=== PATIENT | female | born 1955 | race Caucasian/White ===

== ENCOUNTER 2017-07-27 08:33 | Emergency (ER) | payer BC ==
[2017-07-27 08:47] VITALS: BP 140/87
[2017-07-27] MEDS ORDERED: Fluorescein Sodium TOPICAL* 1 MG TEST OPHTHALMIC ONE (08:56)
[2017-07-27] MEDS ORDERED: Tetracaine 0.5% OPTH.SOL 4 ML* 1 DROP BTL LEFT EYE ONE (08:57)
[2017-07-27] MEDS ORDERED: Eye Irrigation Solution 30 ML BOTTLE LEFT EYE ONE (08:57)
--- NOTE | 2017-07-27 09:31 | UC ---
Skin Complaint HPI - HPI Summary HPI Summary: Edilma FOUR DAYS HAS HAD ITCHY LESIONS ON RIGHT ELBOW, LEFT INDEX FINGER AND RIGHT THUMB. TODAY FELT IRRITATION IN LEFT EYE. SISTER VISITED A FEW WEEKS AGO AND HAD SHINGLES. CONCERN THAT SHE HAS SHINGLES. NO FEVER. LESION ON RIGHT ELBOW IS RESOLVING. NO DISCHARGE. NO CHANGES IN VISION. NO RASHES ON FACE. - History of Current Complaint Chief Complaint: UCEye Time Seen by Provider: 07/27/17 08:50 Stated Complaint: EYE ISSUE SKIN ISSUE Hx Obtained From: Patient Onset/Duration: Gradual Onset, Lasting Days, Still Present Skin Exposure Onset/Duration: Days Ago Onset Severity: Mild Current Severity: Mild Location: Diffuse Character: Pruritus, Raised - <1mm VESICLE ON LEFT INDEX FINGER AND RIGHT THUMB Aggravating: Nothing Alleviating: Nothing Associated Signs & Symptoms: Positive: Rash. Negative: Nausea, Vomiting, Numbness, Difficulty Breathing, Fever, Chills, Cough, Wheezing, Chest Pain, Hoarseness, Throat Tightening, Drainage, Tenderness, Red Streaks, Joint Swelling Related History: Possible Reaction to: Insect, Possible Reaction to: Environmental Exposure - Allergy/Home Medications Allergies/Adverse Reactions: Allergies Allergy/AdvReac Type Severity Reaction Status Date / Time Milk Protein Extract AdvReac See Comment Verified 07/27/17 08:47 [From Spiriva] Tiotropium [From Spiriva] AdvReac See Comment Verified 07/27/17 08:47 Review of Systems Constitutional: Negative Skin: Rash Eyes: Eye Redness - MILD LEFT LATERAL SCLERA ENT: Negative Respiratory: Negative Cardiovascular: Negative Gastrointestinal: Negative Genitourinary: Negative Motor: Negative Neurovascular: Negative Musculoskeletal: Negative Neurological: Negative Psychological: Anxious All Other Systems Reviewed And Are Negative: Yes PMH/Surg Hx/FS Hx/Imm Hx Previously Healthy: Yes - Surgical History Surgical History: Yes Surgery Procedure, Year, and Place: LT SHOULDER SURGURY 2003basal cell ca removalTONSILS A KID - Family History Known Family History: Positive: Unknown, Other - SISTER HAD SHINGLES Family History: noncontributory - Social History Occupation: Employed Full-time Lives: With Family Alcohol Use: Occasionally Substance Use Type: None Smoking Status (MU): Never Smoked Tobacco Physical Exam Triage Information Reviewed: Yes Appearance: Well-Appearing, No Pain Distress, Well-Nourished Vital Signs: Initial Vital Signs Temp 97.6 F 07/27/17 08:42 Pulse 68 07/27/17 08:42 Resp 18 07/27/17 08:42 BP 140/87 07/27/17 08:42 Pulse Ox 99 07/27/17 08:42 Vital Signs Reviewed: Yes Eyes: Positive: Conjunctiva Inflamed - MILD INFLAMMATION OF LEFT LATERAL SCLERA , Other: - NO FLUORESCEIN UPTAKE IN CORNEA OR SCLERA ENT Exam: Normal ENT: Positive: Normal ENT inspection, Hearing grossly normal, TMs normal Dental Exam: Normal Neck exam: Normal Neck: Positive: Supple, Nontender, No Lymphadenopathy Respiratory Exam: Normal Respiratory: Positive: Chest non-tender, Lungs clear, Normal breath sounds, No respiratory distress, No accessory muscle use Cardiovascular Exam: Normal Cardiovascular: Positive: RRR, No Murmur, Pulses Normal Abdominal Exam: Normal Musculoskeletal Exam: Normal Musculoskeletal: Positive: Strength Intact, ROM Intact Neurological Exam: Normal Psychological Exam: Normal Skin: Positive: rashes - ERYTHEMATOUS MACULAR 0.5CM X 0.5CM RIGHT ELBOW; <1mm NONTENDER VESICLE LEFT INDEX FINGER, <1mm NONTENDER VESICLE RIGH THUMB; Course/Dx - Differential Diagnoses - Skin Complaint Differential Diagnoses: Allergic Reaction, Cellulitis, Contact Dermatitis, Drug Rash, Scabies, Varicella Zoster - Diagnoses Provider Diagnoses: CONTACT DERMATITIS; LEFT CONJUNCTIVITIS Discharge - Discharge Plan Condition: Stable Disposition: HOME Prescriptions: Tobramycin 0.3% OPHTH.ISABELLA* 1 drop LEFT EYE Q4H #1 btl Triamcinolone 0.1% OINT(NF) [Kenalog 0.1% OINT(NF)] 1 applic .SEE ORDER TID #1 tube Patient Education Materials: Contact Dermatitis (ED), Conjunctivitis (ED) Referrals: Sierra Jimenez MD [Primary Care Provider] -
== END 2017-07-27 09:25 | disposition home or self-care (01) ==
LOC: UCEAST 08:33
DX: L25.9 Unspecified contact dermatitis, unspecified cause (principal); H10.32 Unspecified acute conjunctivitis, left eye
CPT/HCPCS: 99212; A9270-GY; G0463

== ENCOUNTER 2018-07-15 15:51 | Emergency (ER) | payer BC, OTHER ==
--- OUTSIDE RECORDS SUMMARY | 2018-07-15 15:57 | XMS REPORT ---
:1955 External Reference #:[id number] Author Organization [facility] Address [address] [place] [address] Phone [phone] Care Team Providers Name Role Phone Sierra Jimenez M.D. Primary Care Physician Unavailable Payers Type Date Identification Numbers Payment Provider Subscriber Commercial Effective: Policy Number: [id number] [facility] [place] 2015 Healthcare Group Number: [id number] [address] Group Name: [place] [address] PayID: [id number] Problems Date Description Provider Status Onset: 06/26/2017 Uncomplicated moderate persistent Ivon Saavedra M.D. Active asthma Onset: 12/26/2015 Uncomplicated moderate persistent Franchesca BrianLAN duranP-C Active asthma Onset: 12/26/2015 Allergic rhinitis due to animals KRYSTAL Beaver-C Active Onset: 10/07/2013 Acute maxillary sinusitis Janine Guy M.D. Active Onset: 10/07/2013 Allergic rhinitis due to pollen Janine Guy M.D. Active Onset: 10/07/2013 Allergic rhinitis Janine Guy M.D. Active Onset: 10/07/2013 Extrinsic asthma without status Janine Guy M.D. Active asthmaticus Family History Date Family Member(s) Problem(s) Comments General Seasonal Allergies General Asthma General strep throat daughter General Food Allergy father: strawberries, shellfish sisters: shellfish General Migraine General Thyroid Disease General Colon Cancer General AMANDA daughter General Cervical Cancer Father Seasonal Allergies Father Food Allergy Father Colon Cancer Mother Migraine Mother Thyroid Disease Mother Cervical Cancer First Sister Asthma First Sister Migraine First Sister Food Allergy Social History Type Date Description Comments Marital Status Legal Status: Lives With Spouse Home Environment Uses air motor power connector Home Environment Does not have an air conditioner Home Environment Unfinished Basement Home Environment The basement is damp Home Environment Does not use a dehumidifier Home Environment There are draperies in the home Home Environment The home is pa Home Environment The floors are wood Home Environment Uses forced air heating Home Environment Uses oil heating Home Environment [place] Home Environment Water Source: Well Smoke-Free Home is smoke-free Smoke-Free Work is smoke-free Pets 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 ETOH Use Occasionally consumes alcohol Smoking Patient has never smoked Recreational Drug Use Never Used Drugs Allergies, Adverse Reactions, Alerts Date Description Reaction Status Severity Comments 06/18/2014 Spiriva urinary retention active 02/21/2015 Latex active itching Medications Medication Date Status Form Strength Qnty SIG Indications Ordering Provider Ventolin HFA 06/26 Active Aerosol 108(90Bas 18uni 2 puffs Izabel /2016 e) ts inhalation Uldrich, mcg/Act every 4 DIETARY DIRECTOR-C hours prn Optichamber 06/06 Active Device 1unit use with Sharon Ramsay /2015 s all Chau, inhalers DIETARY DIRECTOR-BC may sustitute easivent spacer Dx: J45.40 asthma Levocetirizine 01/25 Active Tablets 5mg 30tab one tablet Izabel Dihydrochloride s by mouth Uldrich, each DIETARY DIRECTOR-C evening Albuterol Sulfate 12/21 Active Nebulizer (2.5mg/3M 1Box one vial L) 0.083% via neb Pieretti, every 2-4 M.D. hours as needed for wheezing Patanase 10/21 Active Solution 0.6% 30.5u 1 spray per nits nostril 2 x Uldrich, daily apply DIETARY DIRECTOR-C rebate: rxbin: [id number] ceramist: ([id number]) rxpcn: loyalty rxgrp: [id number] id: [id number] Peak Flow Meter 07/20 Active Device 1unit Measure Randi L. /2012 s peak flow Sejal, and use DIETARY DIRECTOR-C rescue inhaler according to directions Nebulizer 09/08 Active Device 1unit use with Greg Hanson/Tubing s xmark Partida M.D. solution Nebulizer 09/08 Active Misc 1unit durable Nadir /2011 s medical Rubinstei equipment n, MKevin purchase Raloxifene HCL Active Tablets 60mg one tablet Unknown /0000 once a day Montelukast Active Tablets 10mg 1 by mouth Unknown Sodium /0000 every day Symbicort Active Aerosol 160-4.5mc 2 puffs Unknown /0000 g/Act inhalation twice a day Medications Administered in Office Medication Date Status Form Strength Qnty SIG Indications Ordering Provider Injection 0725/ Administered Injection Allergy 2018 Injection Injection 07/02/ Administered Injection Allergy 2018 Injection Injection 06/20/ Administered Injection Allergy 2017 Injection Injection 06/06/ Administered Injection Allergy 2017 Injection Injection 05/14/ Administered Injection Ivon Saavedra M.D. Injection 05/14/ Administered Injection Allergy 2018 Injection Injection 04/30/ Administered Injection Allergy 2018 Injection Injection 04/05/ Administered Injection Allergy 2018 Injection Injection 03/15/ Administered Injection Allergy 2018 Injection Injection /28/ Administered Injection Allergy 2018 Injection Injection 02/12/ Administered Injection Allergy 2018 Injection Injection 02// Administered Injection Allergy 2018 Injection Injection 12/16/ Administered Injection Allergy 2018 Injection Injection 01/05/ Administered Injection Allergy 2018 Injection Injection 12/07/ Administered Injection Allergy 2017 Injection Injection 11/09/ Administered Injection Allergy 2017 Injection Injection 10/20/ Administered Injection Allergy 2017 Injection Injection 09/29/ Administered Injection Allergy 2016 Injection Injection 09/14/ Administered Injection Allergy 2017 Injection Injection 08/31/ Administered Injection Allergy 2017 Injection Injection 08/18/ Administered Injection Allergy 2017 Injection Injection 07/31/ Administered Injection Allergy 2017 Injection Injection 07/17/ Administered Injection Allergy 2017 Injection Injection 06/28/ Administered Injection Allergy 2016 Injection Injection 06/19/ Administered Injection Allergy 2016 Injection Injection 05/26/ Administered Injection Allergy 2017 Injection Injection 05/05/ Administered Injection Allergy 2016 Injection Injection 04/19/ Administered Injection Allergy 2016 Injection Injection 04/10/ Administered Injection Allergy 2016 Injection Injection 03/30/ Administered Injection Allergy 2016 Injection Injection 03/16/ Administered Injection Allergy 2016 Injection Injection 03/08/ Administered Injection Allergy 2016 Injection Injection 02/22/ Administered Injection Allergy 2017 Injection Injection 02/01/ Administered Injection Allergy 2017 Injection Injection 01/13/ Administered Injection Allergy 2017 Injection Injection 1228/ Administered Injection Allergy 2016 Injection Injection 12/14/ Administered Injection Allergy 2016 Injection Injection 10/22/ Administered Injection Allergy 2016 Injection Injection 11/11/ Administered Injection Allergy 2016 Injection Injection 10// Administered Injection Allergy 2016 Injection Injection 10/07/ Administered Injection Allergy 2016 Injection Injection 09/19/ Administered Injection Allergy 2016 Injection Injection 09/07/ Administered Injection Allergy 2016 Injection Injection 08/29/ Administered Injection Allergy 2016 Injection Injection 08/10/ Administered Injection Allergy 2016 Injection Injection 08/01/ Administered Injection Allergy 2016 Injection Injection 07/20/ Administered Injection Allergy 2016 Injection Injection 07/06/ Administered Injection Allergy 2016 Injection Injection 06/15/ Administered Injection Allergy 2015 Injection Injection 05/27/ Administered Injection Allergy 2016 Injection Injection 05/13/ Administered Injection Allergy 2016 Injection Injection 04/25/ Administered Injection Allergy 2016 Injection Injection 04/11/ Administered Injection Allergy 2016 Injection Injection 02/19/ Administered Injection Allergy 2016 Injection Injection 03/14/ Administered Injection Allergy 2016 Injection Injection 02/29/ Administered Injection Allergy 2016 Injection Injection 02/15/ Administered Injection Allergy 2016 Injection Injection 01/25/ Administered Injection Allergy 2016 Injection Injection 01/15/ Administered Injection Allergy 2016 Injection Injection 01/04/ Administered Injection Allergy 2016 Injection Injection 12/21/ Administered Injection Allergy 2015 Injection Injection 12/07/ Administered Injection Allergy 2015 Injection Injection 11/16/ Administered Injection Allergy 2015 Injection Injection 11/04/ Administered Injection Allergy 2015 Injection Injection 10/21/ Administered Injection Allergy 2015 Injection Injection 09/30/ Administered Injection Allergy 2015 Injection Injection 09/14/ Administered Injection Allergy 2015 Injection Injection 08/31/ Administered Injection Allergy 2014 Injection Injection 08/07/ Administered Injection Allergy 2015 Injection Injection 07/24/ Administered Injection Allergy 2014 Injection Injection 07/06/ Administered Injection Allergy 2014 Injection Injection 06/22/ Administered Injection Allergy 2014 Injection Injection 06/15/ Administered Injection Allergy 2014 Injection Injection 05/27/ Administered Injection Allergy 2014 Injection Injection 05/08/ Administered Injection Allergy 2014 Injection Injection 04/29/ Administered Injection Allergy 2015 Injection Injection 04/20/ Administered Injection Allergy 2015 Injection Injection 04/06/ Administered Injection Allergy 2015 Injection Injection 03/09/ Administered Injection Allergy 2014 Injection Injection 02/16/ Administered Injection Allergy 2015 Injection Injection 01/28/ Administered Injection Allergy 2015 Injection Injection 01/12/ Administered Injection Allergy 2015 Injection Injection 12/29/ Administered Injection Allergy 2013 Injection Injection 12/12/ Administered Injection Allergy 2013 Injection Injection 11/26/ Administered Injection Allergy 2013 Injection Injection 11/12/ Administered Injection Allergy 2013 Injection Injection 10/24/ Administered Injection Allergy 2013 Injection Injection 10/15/ Administered Injection Allergy 2013 Injection Injection 09/29/ Administered Injection Allergy 2013 Injection Injection 09/22/ Administered Injection Allergy 2013 Injection Injection 09/08/ Administered Injection Allergy 2013 Injection Injection 08/15/ Administered Injection Allergy 2013 Injection Injection 07/25/ Administered Injection Allergy 2013 Injection Injection 07/11/ Administered Injection Allergy 2013 Injection Injection 06/23/ Administered Injection Allergy 2013 Injection Injection 06/16/ Administered Injection Allergy 2013 Injection Injection 06/09/ Administered Injection Allergy 2013 Injection Injection 06/02/ Administered Injection Allergy 2013 Injection Injection 04/25/ Administered Injection Allergy 2013 Injection Injection 03/26/ Administered Injection Allergy 2013 Injection Injection 02/26/ Administered Injection Allergy 2013 Injection Injection 02/10/ Administered Injection Allergy 2013 Injection Injection 01/27/ Administered Injection Allergy 2013 Injection Injection 01/15/ Administered Injection Allergy 2013 Injection Injection 12/30/ Administered Injection Allergy 2012 Injection Injection 12/13/ Administered Injection Allergy 2012 Injection Injection 11/25/ Administered Injection Allergy 2012 Injection Injection 11/06/ Administered Injection Allergy 2012 Injection Injection 10/23/ Administered Injection Allergy 2012 Injection Injection 10/09/ Administered Injection Allergy 2012 Injection Injection 10/02/ Administered Injection Allergy 2012 Injection Injection 09/25/ Administered Injection Allergy 2012 Injection Injection 09/11/ Administered Injection Allergy 2012 Injection Injection 08/21/ Administered Injection Allergy 2012 Injection Injection 08/07/ Administered Injection Allergy 2012 Injection Injection 07/31/ Administered Injection Allergy 2012 Injection Injection 07/17/ Administered Injection Allergy 2012 Injection Injection 07/01/ Administered Injection Allergy 2012 Injection Injection 06/21/ Administered Injection Allergy 2012 Injection Injection 05/29/ Administered Injection Allergy 2012 Injection Injection 05/10/ Administered Injection Allergy 2012 Injection Injection 05/01/ Administered Injection Allergy 2012 Injection Injection 04/22/ Administered Injection Allergy 2012 Injection Injection 04/15/ Administered Injection Allergy 2012 Injection Injection 04/03/ Administered Injection Allergy 2012 Injection Injection 03/20/ Administered Injection Allergy 2012 Injection Injection 03/13/ Administered Injection Nadir 2012 Gianfranco Ford Injection 02/27/ Administered Injection Nadir 2012 Gianfranco Ford Injection 02/06/ Administered Injection Nadir 2012 Gianfranco Ford Injection 01/18/ Administered Injection Nadir 2012 Gianfranco Ford Injection 11/28/ Administered Injection Nadir 2012 Gianfranco oFrd Injection 11/12/ Administered Injection Nadir 2011 Gianfranco Ford Injection 10/31/ Administered Injection Naidr 2011 Gianfranco Ford Injection 10/13/ Administered Injection Nadir 2011 Gianfranco Ford Injection 09/24/ Administered Injection Nadir 2011 Gianfranco Ford Injection 09/08/ Administered Injection Nadir 2011 Gianfranco Ford Injection 08/08/ Administered Injection Nadir 2011 Gianfranco Ford Injection 07/23/ Administered Injection Nadir 2011 Gianfranco Ford Injection 06/25/ Administered Injection Nadir 2011 Gianfranco Ford Injection 05/26/ Administered Injection Nadir 2011 Gianfranco Ford Injection 05/14/ Administered Injection Nadir 2011 Gianfranco Ford Injection 04/28/ Administered Injection Nadir 2011 Gianfranco Ford Injection 04/04/ Administered Injection Nadir 2011 Gianfranco Ford Injection 03/03/ Administered Injection Greg Pearson, 2011 Gianfranco Injection 02/17/ Administered Injection Greg Pearson, 2011 Gianfranco Injection 02/10/ Administered Injection Nadir 2011 Gianfranco Ford Injection 01/04/ Administered Injection Nadir 2011 Gianfranco Ford Injection 12/05/ Administered Injection Nadir 2011 Gianfranco Ford Injection 11/07/ Administered Injection Nadir 2010 Gianfranco Ford Injection 10/01/ Administered Injection Nadir 2010 Gianfranco Ford Injection 09/07/ Administered Injection Nadir 2010 Gianfranco Ford Injection 08/15/ Administered Injection Janine 2010 Gianfranco Guy Injection 08/01/ Administered Injection Nadir 2010 Gianfranco Ford Injection 07/13/ Administered Injection Nadir 2010 Gianfranco Ford Injection 06/25/ Administered Injection Nadir 2010 Gianfranco Ford Injection 06/06/ Administered Injection Nadir 2010 Gianfranco Ford Injection 05/02/ Administered Injection Nadir 2010 Gianfranco Ford Injection 04/13/ Administered Injection Nadir 2010 Gianfranco Ford Injection 03/19/ Administered Injection Nadir 2010 Gianfranco Ford Injection 02/12/ Administered Injection Christopher 2010 Judi Nowak M.D. Injection 01/26/ Administered Injection Christopher 2010 Judi Nowak M.D. Injection 01/12/ Administered Injection Christopher 2010 Judi Nowak M.D. Injection 12/25/ Administered Injection Christopher 2010 Judi Nowak M.D. Injection 11/22/ Administered Injection Christopher 2009 Judi Nowak M.D. Injection 10/23/ Administered Injection Christopher 2009 Judi Nowak M.D. Injection 09/15/ Administered Injection Christopher 2009 Judi Nowak M.D. Injection 08/11/ Administered Injection Christopher 2009 Judi Nowak M.D. Injection 06/30/ Administered Injection Christopher 2009 Judi Nowak M.D. Injection 06/14/ Administered Injection Christopher 2009 Judi Nowak M.D. Injection 06/02/ Administered Injection Christopher 2009 Judi Nowak M.D. Injection 05/15/ Administered Injection Christopher 2009 Judi Nowak M.D. Injection 05/01/ Administered Injection Christopher 2009 Judi Nowak M.D. Injection 03/13/ Administered Injection Christopher 2009 Judi Nowak M.D. Injection 02/22/ Administered Injection Christopher 2009 Judi Nowak M.D. Injection 02/01/ Administered Injection Christopher 2009 Judi Nowak M.D. Injection 01/18/ Administered Injection Christopher 2009 Judi Nowak M.D. Injection 12/28/ Administered Injection Nadir 2009 Gianfranco Ford Injection 12/05/ Administered Injection Christopher 2009 Judi Nowak M.D. Injection 10/31/ Administered Injection Christopher 2008 Judi Nowak M.D. Injection 10/03/ Administered Injection Christopher 2008 Judi Nowak M.D. Injection 08/29/ Administered Injection Christopher 2008 Judi Nowak M.D. Injection 08/10/ Administered Injection Christopher 2008 Judi Nowak M.D. Injection 07/27/ Administered Injection Christopher 2008 Judi Nowak M.D. Injection 07/08/ Administered Injection Christopher 2008 Judi Nowak M.D. Injection 06/20/ Administered Injection Christopher 2008 Judi Nowak M.D. Injection 06/03/ Administered Injection Christopher 2008 Judi Nowak M.D. Injection 05/20/ Administered Injection Christopher 2008 Judi Nowak M.D. Injection 04/27/ Administered Injection Christopher 2008 Judi Nowak M.D. Injection 03/11/ Administered Injection Christopher 2008 Judi Nowak M.D. Injection 02/16/ Administered Injection Christopher 2008 Judi Nowak M.D. Injection 01/26/ Administered Injection Christopher 2008 Judi Nowak M.D. Injection 12/17/ Administered Injection Christopher 2008 Judi Nowak M.D. Injection 11/08/ Administered Injection Christopher 2007 Judi Nowak M.D. Injection 10/04/ Administered Injection Christopher 2007 Judi Nowak M.D. Injection 08/30/ Administered Injection Christopher 2007 Judi Nowak M.D. Injection 08/18/ Administered Injection Christopher 2007 uJdi Nowak M.D. Injection 07/16/ Administered Injection Christopher 2007 Judi Nowak M.D. Injection 07/02/ Administered Injection Nadir 2007 Gianfranco Ford Injection 06/16/ Administered Injection Christopher 2007 Judi Nowak M.D. Injection 05/31/ Administered Injection Christopher 2007 Judi Nowak M.D. Injection 05/17/ Administered Injection Christopher 2007 Judi Nowak M.D. Injection 04/28/ Administered Injection Nadir 2008 Gianfranco Ford Injection 03/26/ Administered Injection Christopher 2007 Judi Nowak M.D. Injection 03/12/ Administered Injection Christopher 2007 Judi Nowak M.D. Injection 02/24/ Administered Injection Christopher 2008 Judi Nowak M.D. Injection 02/05/ Administered Injection Christopher 2008 Judi Nowak M.D. Injection 01/14/ Administered Injection Christopher 2008 Judi Nowak M.D. Injection 12/08/ Administered Injection Christopher 2008 Judi Nowak M.D. Injection 10/22/ Administered Injection Christopher 2007 Judi Nowak M.D. Injection 10/03/ Administered Injection Christopher 2006 Judi Nowak M.D. Injection 09/12/ Administered Injection Christopher 2006 Judi Nowak M.D. Injection 09/03/ Administered Injection Christopher 2006 Judi Nowak M.D. Injection 08/13/ Administered Injection Christopher 2006 Judi Nowak M.D. Injection 08/06/ Administered Injection Christopher 2006 Judi Nowak M.D. Injection 08/01/ Administered Injection Christopher 2006 Judi Nowak M.D. Injection 07/21/ Administered Injection Christopher 2006 Judi Nowak M.D. Injection 07/16/ Administered Injection Christopher 2006 Judi Nowak M.D. Injection 07/07/ Administered Injection Christopher 2006 Judi Nowak M.D. Injection 07/02/ Administered Injection Christopher 2006 Judi Nowak M.D. Injection 06/25/ Administered Injection Christopher 2006 Judi Nowak M.D. Injection 03/17/ Administered Injection Christopher 2006 Judi Nowak M.D. Injection 03/03/ Administered Injection Christopher 2007 Judi Nowak M.D. Injection 02/10/ Administered Injection Christopher 2007 Judi Nowak M.D. Injection 01/27/ Administered Injection Christopher 2007 Judi Nowak M.D. Injection 12/16/ Administered Injection Christopher 2007 Judi Nowak M.D. Injection 11/22/ Administered Injection Christopher 2006 Judi Nowak M.D. Celestone/Cor 11/20/ Administered Injection Christopher tisone 2006 Judi Nowak [id number] 1 Gianfranco cc Injection 10/23/ Administered Injection Christopher 2005 Judi Nowak M.D. Injection 10/14/ Administered Injection Christopher 2006 Judi Nowak M.D. Injection 10/02/ Administered Injection Christopher 2006 Judi Nowak M.D. Injection 09/25/ Administered Injection Christopher 2006 Judi Nowak M.D. Injection 09/18/ Administered Injection Christopher 2005 Judi Nowak M.D. Injection 09/11/ Administered Injection Christopher 2006 Judi Nowak M.D. Injection 09/06/ Administered Injection Christopher 2006 Judi Nowak M.D. Injection 08/30/ Administered Injection Christopher 2006 Judi Nowak M.D. Injection 08/21/ Administered Injection Christopher 2005 Judi Nowak M.D. Injection 08/14/ Administered Injection Christopher 2005 Judi Nowak M.D. Injection 08/07/ Administered Injection Christopher 2005 Judi Nowak M.D. Injection 08/02/ Administered Injection Nadir 2005 Gianfranco Ford Injection 07/24/ Administered Injection Christopher 2005 Judi Nowak M.D. Injection 07/19/ Administered Injection Christopher 2005 Judi Nowak M.D. Injection 07/10/ Administered Injection Christopher 2005 Judi Nowak M.D. Injection 07/03/ Administered Injection Christopher 2005 Judi Nowak M.D. Injection 06/28/ Administered Injection Christopher 2005 Judi Nowak M.D. Injection 06/12/ Administered Injection Christopher 2005 Judi Nowak M.D. Injection 06/05/ Administered Injection Christopher 2005 Judi Nowak M.D. Injection 05/29/ Administered Injection Christopher 2005 Judi Nowak M.D. Immunizations CPT Code Status Date Vaccine Lot # 70233 Given 08/24/2014 Influenza Vaccine 86065 Given 08/25/2013 Influenza Vaccine 38774 Given Unknown Pneumococcal Vaccine 88288 Given Unknown Influenza Vaccine 42150 Given Unknown Influenza Vaccine Vital Signs Date Vital Result Comment 06/25/2018 Height 61 inches 5'1" Weight 132.00 lb Weight in kg's 59.875 Respiratory Rate 20 /min Heart Rate 61 /min O2 % BldC Oximetry 98 % BP Systolic 103 mmHg BP Diastolic 60 mmHg Asthma Control Test 20 BMI (Body Mass Index) 24.9 kg/m2 06/26/2017 Height 61 inches 5'1" Weight 133.00 lb Weight in kg's 60.329 Respiratory Rate 20 /min Heart Rate 78 /min O2 % BldC Oximetry 97 % BP Systolic 129 mmHg BP Diastolic 81 mmHg Asthma Control Test 17 BMI (Body Mass Index) 25.1 kg/m2 12/26/2016 Height 61 inches 5'1" Weight 133.00 lb Weight in kg's 60.329 Respiratory Rate 20 /min Heart Rate 61 /min O2 % BldC Oximetry 98 % BP Systolic 105 mmHg BP Diastolic 60 mmHg Asthma Control Test 19 BMI (Body Mass Index) 25.1 kg/m2 06/25/2016 Height 61 inches 5'1" Weight 129.00 lb Weight in kg's 58.514 Respiratory Rate 12 /min Heart Rate 56 /min O2 % BldC Oximetry 97 % BP Systolic 107 mmHg BP Diastolic 60 mmHg Asthma Control Test 16 BMI (Body Mass Index) 24.4 kg/m2 12/26/2015 Height 61.5 inches 5'1.50" Weight 135.12 lb Weight in kg's 61.293 Respiratory Rate 1 /min Heart Rate 66 /min O2 % BldC Oximetry 96 % BP Systolic 109 mmHg BP Diastolic 60 mmHg Asthma Control Test 19 BMI (Body Mass Index) 25.1 kg/m2 06/22/2015 Height 61.5 inches 5'1.50" Weight 129.00 lb Weight in kg's 58.514 Respiratory Rate 18 /min Heart Rate 68 /min O2 % BldC Oximetry 95 % BP Systolic 118 mmHg BP Diastolic 68 mmHg Asthma Control Test 16 BMI (Body Mass Index) 24.0 kg/m2 02/21/2015 Height 61.5 inches 5'1.50" Weight 128.00 lb Weight in kg's 58.061 Respiratory Rate 18 /min Heart Rate 72 /min Body Temperature 98.3 F O2 % BldC Oximetry 97 % BP Systolic 110 mmHg BP Diastolic 78 mmHg Asthma Control Test 20 BMI (Body Mass Index) 23.8 kg/m2 12/15/2014 Height 61.5 inches 5'1.50" Weight 132.00 lb Weight in kg's 59.875 Respiratory Rate 20 /min Heart Rate 68 /min O2 % BldC Oximetry 97 % BP Systolic 112 mmHg BP Diastolic 62 mmHg Asthma Control Test 16 BMI (Body Mass Index) 24.5 kg/m2 09/08/2014 Height 62 inches 5'2" Weight 134.00 lb Weight in kg's 60.782 Respiratory Rate 16 /min Heart Rate 65 /min O2 % BldC Oximetry 96 % BP Systolic 114 mmHg BP Diastolic 68 mmHg Asthma Control Test 18 BMI (Body Mass Index) 24.5 kg/m2 06/18/2014 Height 62 inches 5'2" Weight 131.00 lb Weight in kg's 59.422 Respiratory Rate 18 /min Heart Rate 59 /min O2 % BldC Oximetry 98 % BP Systolic 116 mmHg BP Diastolic 60 mmHg BMI (Body Mass Index) 24.0 kg/m2 05/26/2014 Height 61.5 inches 5'1.50" Weight 125.00 lb Weight in kg's 56.700 Respiratory Rate 16 /min Heart Rate 57 /min O2 % BldC Oximetry 98 % BP Systolic 112 mmHg BP Diastolic 62 mmHg Asthma Control Test 18 BMI (Body Mass Index) 23.2 kg/m2 02/24/2014 Height 62 inches 5'2" Weight 138.00 lb Weight in kg's 62.597 Respiratory Rate 16 /min Heart Rate 62 /min O2 % BldC Oximetry 96 % BP Systolic 124 mmHg BP Diastolic 78 mmHg Asthma Control Test 15 BMI (Body Mass Index) 25.2 kg/m2 01/25/2014 Weight 140.00 lb Weight in kg's 63.504 Respiratory Rate 16 /min Heart Rate 61 /min O2 % BldC Oximetry 97 % BP Systolic 110 mmHg BP Diastolic 67 mmHg Asthma Control Test 14 01/04/2014 Height 62 inches 5'2" Weight 140.00 lb pt verbalized weight Weight in kg's 63.504 Respiratory Rate 14 /min Heart Rate 67 /min O2 % BldC Oximetry 98 % BP Systolic 94 mmHg BP Diastolic 62 mmHg Asthma Control Test 13 BMI (Body Mass Index) 25.6 kg/m2 10/21/2013 Height 62 inches 5'2" Weight 132.00 lb Weight in kg's 59.875 Respiratory Rate 16 /min Heart Rate 80 /min O2 % BldC Oximetry 99 % BP Systolic 138 mmHg BP Diastolic 74 mmHg Asthma Control Test 14 BMI (Body Mass Index) 24.1 kg/m2 10/07/2013 Height 62 inches 5'2" Weight 133.00 lb Weight in kg's 60.329 Respiratory Rate 16 /min Heart Rate 78 /min O2 % BldC Oximetry 98 % BP Systolic 142 mmHg BP Diastolic 76 mmHg Asthma Control Test 7 BMI (Body Mass Index) 24.3 kg/m2 09/28/2013 Height 62 inches 5'2" Weight 128.00 lb Weight in kg's 58.061 Respiratory Rate 14 /min Heart Rate 58 /min O2 % BldC Oximetry 98 % BP Systolic 98 mmHg BP Diastolic 76 mmHg BMI (Body Mass Index) 23.4 kg/m2 08/26/2013 Height 62 inches 5'2" Weight 128.00 lb Weight in kg's 58.061 Respiratory Rate 16 /min Heart Rate 81 /min O2 % BldC Oximetry 97 % BP Systolic 118 mmHg BP Diastolic 70 mmHg Asthma Control Test 10 BMI (Body Mass Index) 23.4 kg/m2 07/20/2013 Height 61 inches 5'1" Weight 128.00 lb Weight in kg's 58.061 Heart Rate 79 /min O2 % BldC Oximetry 97 % BP Systolic 118 mmHg BP Diastolic 60 mmHg BMI (Body Mass Index) 24.2 kg/m2 07/06/2013 Height 62 inches 5'2" Weight 127.00 lb Weight in kg's 57.607 Respiratory Rate 16 /min Heart Rate 65 /min O2 % BldC Oximetry 96 % BP Systolic 116 mmHg BP Diastolic 64 mmHg BMI (Body Mass Index) 23.2 kg/m2 04/29/2013 Height 61 inches 5'1" Weight 125.00 lb Weight in kg's 56.700 Respiratory Rate 16 /min Heart Rate 67 /min O2 % BldC Oximetry 96 % BP Systolic 110 mmHg BP Diastolic 70 mmHg BMI (Body Mass Index) 23.6 kg/m2 10/20/2012 Respiratory Rate 14 /min Heart Rate 68 /min Results Test Date Test Result H/L Range Note CBC Auto Diff 10/07/2013 White Blood Count 8.8 10^3/uL 4.8-10.8 Red Blood Count 3.99 10^6/uL Low 4.0-5.4 Hemoglobin 13.4 g/dL 12.0-16.0 Hematocrit 40 % 35-47 Mean Corpuscular Volume 100 fL High 80-97 Mean Corpuscular Hemoglobin 34 pg High 27-31 Mean Corpuscular HGB Conc 34 g/dL 31-36 Red Cell Distribution Width 14 % 10.5-15 Platelet Count 285 10^3/uL 150-450 Mean Platelet Volume 7 um3 Low 7.4-10.4 Abs Neutrophils 6.0 10^3/uL 1.5-7.7 Abs Lymphocytes 2.1 10^3/uL 1.0-4.8 Abs Monocytes 0.5 10^3/uL 0-0.8 Abs Eosinophils 0.1 10^3/uL 0-0.6 Abs Basophils 0.1 10^3/uL 0-0.2 Abs Nucleated RBC 0.02 10^3/uL Granulocyte % 68.1 % 38-83 Lymphocyte % 23.8 % Low 25-47 Monocyte % 6.3 % 1-9 Eosinophil % 0.8 % 0-6 Basophil % 1.0 % 0-2 Nucleated Red Blood Cells % 0.2 Laboratory test finding 10/07/2013 C Reactive Protein < 0.5 mg/dL Less than 0.5 Haemophilus influenzae B IgG 0.16 mg/L >=0.15 1 Immunoglobulin G 790 mg/dL 767 - 1590 2 Immunoglobulin M 63 mg/dL 37 - 286 3 Immunoglobulin A 123 mg/dL 61 - 356 4 Immunoglobulin E 10.9 kU/L 5 S.Pneumoniae Igg AB 23 10/07/2013 S. pneumoniae Type 1 IgG 91.4 g/mL >= 2.3 Serotyp AB S. pneumoniae Type 2 IgG AB See Comment g/mL >=1.0 6 S. pneumoniae Type 3 IgG AB 1.6 g/mL >=1.8 S. pneumoniae Type 4 IgG AB 1.2 g/mL >=0.6 S. pneumoniae Type 5 IgG AB 5.5 g/mL >=10.7 S. pneumoniae Type 8 IgG AB 1.0 g/mL >=2.9 S. pneumoniae Type 9N IgG AB 1.5 g/mL >=9.2 S. pneumoniae Type 12F IgG AB 1.3 g/mL >=0.6 S. pneumoniae Type 14 IgG AB 37.7 g/mL >=7.0 S. pneumoniae Type 17F IgG AB See Comment g/mL >=7.8 7 S. pneumoniae Type 19F IgG AB 6.8 g/mL >=15.0 S. pneumoniae Type 20 IgG AB 1.6 g/mL >=1.3 S. pneumoniae Type 22F IgG AB See Comment g/mL >=7.2 8 S. pneumoniae Type 23F IgG AB 11.3 g/mL >=8.0 S. pneumoniae Type 6B IgG AB 5.5 g/mL >=4.7 S. pneumoniae Type 10A IgG AB See Comment g/mL >=2.9 9 S. pneumoniae Type 11A IgG AB 7.3 g/mL >=2.4 S. pneumoniae Type 7F IgG AB See Comment g/mL >=3.2 10 S. pneumoniae Type 15B IgG AB 14.3 g/mL >=3.3 S. pneumoniae Type 18C IgG AB 20.5 g/mL >=3.3 S. pneumoniae Type 19A IgG AB 2.5 g/mL >=17.1 S. pneumoniae Type 9V IgG AB See Comment g/mL >=2.6 11 S. pneumoniae Type 33F IgG AB 6.1 g/mL >=1.7 12 Laboratory test finding 10/07/2013 Tetanus Toxoid IgG Antibody 1.46 IU/mL 13 1 The minimum level of protective antibody in the normal population is 0.15 mg/L. However, the optimum antibody level to confer care home immunity is >=1.0 mg/L post vaccination. Test Performed by: [place] [address] [employer]: Nahid Arreola III, M.D. 2 Test Performed by: [place] [address] [employer]: Nahid Arreola III, M.D. 3 Test Performed by: [place] [address] [employer]: Nahid Arreola III, M.D. 4 Test Performed by: [place] [address] [employer]: Nahid Arreola III, M.D. 5 -- REFERENCE VALUE -- Mean 13.2 +1SD 41.0 +2SD 127.0 Test Performed by: [place] [address] [employer]: Nahid Arreola III, M.D. 6 No result available due to non-linear dilution response for this serotype. See Interpretation. 7 No result available due to non-linear dilution response for this serotype. See Interpretation. 8 No result available due to non-linear dilution response for this serotype. See Interpretation. 9 No result available due to non-linear dilution response for this serotype. See Interpretation. 10 No result available due to non-linear dilution response for this serotype. See Interpretation. 11 No result available due to non-linear dilution response for this serotype. See Interpretation. 12 Unable to quantitate serotypes 2 (2), 17F (17), 22F (22), 10A (34), 7F (51), and 9V (68) due to nonlinear dilution response of patient sample. Overall interpretation of pneumococcal antibody serology panel can be based on the reported 17 serotypes. Either of the two following conditions would be consistent with a normal response to Streptococcus pneumoniae vaccination: Antibody concentrations greater than or equal to the reference value for at least 50% of serotypes in either a pre- or post-vaccination sample. Antibody concentrations increased by 2-fold or greater for at least 50% of serotypes when comparing the pre- to the post-vaccination results. Optimal cut-offs (reference values) were derived by measuring serotype-specific IgG antibody levels in an adult cohort of 100 healthy individuals (previously unvaccinated) before and after pneumococcal vaccination and identifying the antibody level for each serotype that included the largest number of individuals with a negative response (below cut-off) pre-vaccination and a positive response (above cut-off) post-vaccination. All 23 serotypes assessed by this assay are included in the Pneumovax 23 vaccine. IgG antibody concentrations following Pneumovax 23 administration are a reflection of an individual's humoral immune response to polysaccharide antigens. Serotypes 1, 3, 4, 5, 6A (6), 14, 19F (19), 23F (23), 6B (26), 7F (51), 18C (56), 19A (57) and 9V (68) are included in the Prevnar-13 conjugate vaccine. Antibody concentrations following Prevnar-13 administration are a reflection of an individual's response to protein-conjugated antigens. Serotypes 2, 8, 9N (9), 12F (12), 17F (17), 20, 22F (22), 10A (34), 11A (43), 15B (54) and 33F (70) are present only in the Pneumovax 23 vaccine and not in Prevnar-13. Responses to these 11 serotypes are a reflection of an individual's response to polysaccharide antigens. Serotype 6A is only present in Prevnar-13. Test Performed by: [address] [address] [employer]: Nahid Arreola III, M.D. 13 The minimum level of protective antibody in the normal population is between 0.01 and 0.15 IU/mL. The majority of vaccinated individuals should demonstrate protective levels of antibody > 0.15 IU/mL. Test Performed by: [address] [address] [employer]: Nahid Arreola III, M.D. Procedures Date CPT Code Description Status 06/25/2018 08719 Ippb Completed 06/25/2018 33551 Pre PFT Completed 06/18/2018 05098 Injection Completed 05/26/2018 34711 Extract 1-10 Completed 05/26/2018 31928 Injection Completed 05/14/2018 81325 Injection Completed 04/30/2018 74453 Injection Completed 04/07/2018 48155 Injection Completed 04/07/2018 28233 Injection Completed 03/24/2018 92799 Injection Completed 02/27/2018 85902 Injection Completed 02/06/2018 87006 Injection Completed 01/22/2018 48957 Injection Completed 01/06/2018 79607 Injection Completed 12/26/2017 18853 Injection Completed 12/16/2017 64603 Extract 1-10 Completed 12/16/2017 08804 Injection Completed 11/29/2017 04077 Injection Completed 10/31/2017 37588 Injection Completed 10/03/2017 48975 Injection Completed 09/13/2017 01870 Injection Completed 08/23/2017 41450 Injection Completed 08/08/2017 19070 Injection Completed 07/25/2017 03719 Injection Completed 07/12/2017 89510 Injection Completed 06/26/2017 95253 Pre PFT Completed 06/24/2017 14152 Injection Completed 06/10/2017 43704 Injection Completed 06/10/2017 33131 Extract 1-10 Completed 05/22/2017 95805 Injection Completed 05/13/2017 95538 Injection Completed 04/19/2017 13240 Injection Completed 03/29/2017 23760 Injection Completed 03/13/2017 35037 Injection Completed 03/04/2017 31822 Injection Completed 02/21/2017 84685 Injection Completed 02/07/2017 00414 Injection Completed 01/30/2017 36375 Injection Completed 01/16/2017 53671 Extract 1-10 Completed 01/16/2017 37834 Injection Completed 12/26/2016 02144 Injection Completed 12/26/2016 23840 Pre PFT Completed 12/07/2016 30427 Injection Completed 11/21/2016 55245 Injection Completed 11/07/2016 95770 Injection Completed 10/22/2016 57746 Injection Completed 10/05/2016 96899 Injection Completed 09/19/2016 50974 Injection Completed 08/31/2016 66558 Injection Completed 08/13/2016 69369 Injection Completed 08/01/2016 32811 Extract 1-10 Completed 08/01/2016 60534 Injection Completed 07/23/2016 70680 Injection Completed 07/04/2016 62969 Injection Completed 06/25/2016 25495 Injection Completed 06/25/2016 08259 Pre PFT Completed 06/13/2016 44687 Injection Completed 05/30/2016 01950 Injection Completed 05/09/2016 11433 Injection Completed 04/20/2016 78180 Injection Completed 04/06/2016 78975 Injection Completed 03/19/2016 09090 Injection Completed 03/05/2016 15006 Extract 1-10 Completed 03/05/2016 23830 Injection Completed 02/20/2016 40935 Injection Completed 02/06/2016 22947 Injection Completed 01/23/2016 95334 Injection Completed 01/09/2016 75503 Injection Completed 12/26/2015 28962 Pre PFT Completed 12/19/2015 04741 Injection Completed 12/09/2015 47717 Injection Completed 11/28/2015 12355 Injection Completed 11/14/2015 44531 Injection Completed 10/31/2015 36000 Injection Completed 10/10/2015 65648 Injection Completed 10/10/2015 92333 Extract 1-10 Completed 09/28/2015 31292 Injection Completed 09/14/2015 65494 Injection Completed 08/24/2015 67430 Injection Completed 08/08/2015 76505 Injection Completed 07/25/2015 39937 Injection Completed 07/01/2015 75994 Injection Completed 06/22/2015 62900 Pre PFT Completed 06/17/2015 48423 Injection Completed 05/30/2015 61771 Injection Completed 05/16/2015 87772 Injection Completed 05/09/2015 66081 Extract 1-10 Completed 05/09/2015 36477 Injection Completed 04/20/2015 95274 Injection Completed 04/01/2015 73653 Injection Completed 03/23/2015 44103 Injection Completed 03/14/2015 80112 Injection Completed 02/28/2015 63433 Injection Completed 01/31/2015 73430 Injection Completed 01/10/2015 96200 Injection Completed 12/22/2014 33810 Injection Completed 12/15/2014 87808 Pre PFT Completed 12/06/2014 91887 Injection Completed 11/22/2014 02546 Extract 1-10 Completed 11/22/2014 13387 Injection Completed 11/05/2014 01533 Injection Completed 10/20/2014 04354 Injection Completed 10/06/2014 33156 Injection Completed 09/17/2014 78133 Injection Completed 09/08/2014 17984 Injection Completed 09/08/2014 50525 Ippb Completed 09/08/2014 23188 Pre PFT Completed 08/23/2014 99127 Injection Completed 08/16/2014 03285 Injection Completed 08/02/2014 37722 Injection Completed 07/09/2014 48499 Injection Completed 06/18/2014 89111 Pulmonary Function Test Completed 06/18/2014 43700 Pulmonary Function Test Completed 06/18/2014 82773 Injection Completed 06/18/2014 85338 Extract 1-10 Completed 06/04/2014 39191 Injection Completed 05/17/2014 24915 Injection Completed 05/10/2014 11258 Injection Completed 05/03/2014 97870 Injection Completed 04/26/2014 11233 Injection Completed 03/19/2014 08505 Injection Completed 02/17/2014 25075 Injection Completed 01/20/2014 20880 Injection Completed 01/04/2014 33048 Injection Completed 12/21/2013 31867 Extract 1-10 Completed 12/21/2013 93194 Injection Completed 12/09/2013 42122 Injection Completed 11/23/2013 35599 Injection Completed 11/06/2013 83155 Injection Completed 10/21/2013 03741 Oxygen Level - Pulse Oximiter Completed 10/21/2013 38206 Pre PFT Completed 10/19/2013 70799 Injection Completed 10/07/2013 79888 Oxygen Level - Pulse Oximiter Completed 09/30/2013 52716 Injection Completed 09/28/2013 98376 Oxygen Level - Pulse Oximiter Completed 09/28/2013 72482 Pulmonary Function Test Completed 09/16/2013 02876 Injection Completed 09/02/2013 40718 Injection Completed 08/26/2013 92451 Injection Completed 08/26/2013 00167 Oxygen Level - Pulse Oximiter Completed 08/19/2013 05796 Injection Completed 08/05/2013 19661 Injection Completed 08/05/2013 21040 Extract 1-10 Completed 07/20/2013 89300 Oxygen Level - Pulse Oximiter Completed 07/15/2013 46952 Injection Completed 07/06/2013 96564 Oxygen Level - Pulse Oximiter Completed 07/01/2013 13360 Injection Completed 06/24/2013 77612 Injection Completed 06/10/2013 11041 Injection Completed 05/25/2013 48995 Injection Completed 05/15/2013 13777 Injection Completed 04/29/2013 56254 Oxygen Level - Pulse Oximiter Completed 04/22/2013 15721 Injection Completed 04/03/2013 52395 Injection Completed 03/25/2013 99444 Injection Completed 03/16/2013 54428 Extract 1-10 Completed 03/16/2013 52907 Injection Completed 03/09/2013 12860 Injection Completed 02/25/2013 73939 Injection Completed 02/11/2013 01984 Injection Completed 02/04/2013 79767 Injection Completed 01/21/2013 17184 Injection Completed 12/31/2012 36053 Injection Completed 12/12/2012 59263 Injection Completed 11/28/2012 10856 Extract 1-10 Completed 11/28/2012 12016 Injection Completed 11/12/2012 29691 Injection Completed 10/31/2012 73813 Injection Completed 10/23/2012 96315 Extract 1-10 Completed 10/20/2012 78814 Skin Test Scratch # Of Units ____ Completed 10/13/2012 11036 Injection Completed 09/24/2012 72633 Injection Completed 09/08/2012 97447 Injection Completed 09/08/2012 62163 Pulmonary Function Test Completed 08/08/2012 65880 Injection Completed 07/23/2012 73081 Injection Completed 06/25/2012 03698 Injection Completed 05/26/2012 77232 Injection Completed 05/16/2012 43294 Extract 1-10 Completed 05/14/2012 64145 Injection Completed 04/28/2012 66369 Injection Completed 04/04/2012 22930 Injection Completed 03/05/2012 53304 Oxygen Level - Pulse Oximiter Completed 03/05/2012 51121 Pre PFT Completed 03/03/2012 93352 Injection Completed 02/18/2012 25019 Injection Completed 02/11/2012 45403 Injection Completed 01/04/2012 73169 Injection Completed 12/05/2011 85621 Injection Completed 11/07/2011 49488 Injection Completed 10/01/2011 89308 Injection Completed 09/19/2011 53868 Extract 1-10 Completed 09/07/2011 45838 Injection Completed 08/15/2011 70698 Injection Completed 08/01/2011 07440 Injection Completed 07/18/2011 58343 Pulmonary Function Test Completed 07/13/2011 23958 Injection Completed 06/25/2011 38945 Injection Completed 06/06/2011 16841 Injection Completed 05/02/2011 23914 Injection Completed 04/13/2011 90831 Injection Completed 03/19/2011 10005 Injection Completed 02/12/2011 34607 Injection Completed 02/05/2011 76702 Extract 1-10 Completed 01/26/2011 89922 Injection Completed 01/19/2011 24736 Pulmonary Function Test Completed 01/12/2011 99133 Injection Completed 12/25/2010 74421 Injection Completed 11/22/2010 34863 Injection Completed 10/23/2010 06987 Injection Completed 09/15/2010 91787 Injection Completed 08/11/2010 99587 Injection Completed 06/30/2010 92037 Injection Completed 06/14/2010 64123 Injection Completed 06/02/2010 55589 Injection Completed 05/22/2010 62757 Extract 1-10 Completed 05/15/2010 03794 Pulmonary Function Test Completed 05/15/2010 92182 Injection Completed 05/01/2010 88290 Injection Completed 03/13/2010 04845 Injection Completed 02/22/2010 92310 Injection Completed 02/01/2010 74736 Injection Completed 01/18/2010 33977 Injection Completed 12/28/2009 42812 Injection Completed 12/05/2009 78122 Injection Completed 10/31/2009 40487 Injection Completed 10/03/2009 66066 Injection Completed 08/29/2009 82808 Injection Completed 08/10/2009 57227 Injection Completed 08/10/2009 79520 Pulmonary Function Test Completed 07/27/2009 25345 Injection Completed 07/08/2009 92780 Injection Completed 06/20/2009 07648 Injection Completed 06/03/2009 92492 Injection Completed 05/20/2009 47348 Injection Completed 04/27/2009 66514 Injection Completed 03/11/2009 70658 Injection Completed 02/16/2009 46545 Injection Completed 01/31/2009 40430 Extract 1-10 Completed 01/26/2009 14110 Injection Completed 12/17/2008 53913 Injection Completed 11/08/2008 04423 Injection Completed 10/04/2008 75197 Injection Completed 08/30/2008 98792 Injection Completed 08/18/2008 66925 Injection Completed 07/16/2008 38173 Injection Completed 07/02/2008 32937 Injection Completed 06/16/2008 27311 Injection Completed 05/31/2008 79379 Injection Completed 05/26/2008 27332 Extract 1-10 Completed 05/17/2008 93215 Injection Completed 04/28/2008 86585 Injection Completed 03/26/2008 26416 Injection Completed 03/12/2008 44533 Injection Completed 02/25/2008 94253 Injection Completed 02/06/2008 13712 Injection Completed 01/14/2008 39772 Injection Completed 12/08/2007 40113 Injection Completed 10/22/2007 96132 Injection Completed 10/03/2007 93452 Injection Completed 09/22/2007 82435 Extract 1-10 Completed 09/12/2007 11231 Injection Completed 09/03/2007 98360 Injection Completed 08/13/2007 90903 Injection Completed 08/06/2007 37908 Injection Completed 08/01/2007 73672 Injection Completed 07/21/2007 56531 Injection Completed 07/16/2007 85335 Injection Completed 07/07/2007 80441 Injection Completed 07/02/2007 81981 Injection Completed 06/27/2007 31985 Pulmonary Function Test Completed 06/25/2007 93817 Injection Completed 03/21/2007 38050 Extract 1-10 Completed 03/17/2007 12370 Injection Completed 03/03/2007 27709 Injection Completed 02/10/2007 33183 Injection Completed 01/27/2007 35723 Injection Completed 12/16/2006 80659 Injection Completed 11/22/2006 65638 Injection Completed 10/23/2006 85440 Injection Completed 10/14/2006 96475 Injection Completed 10/02/2006 48792 Injection Completed 09/25/2006 98296 Injection Completed 09/18/2006 98615 Injection Completed 09/11/2006 65187 Injection Completed 09/06/2006 73955 Injection Completed 08/30/2006 26227 Injection Completed 08/23/2006 85734 Extract 1-10 Completed 08/21/2006 82477 Injection Completed 08/14/2006 61699 Injection Completed 08/07/2006 90703 Injection Completed 08/02/2006 70621 Injection Completed 07/24/2006 57241 Injection Completed 07/19/2006 80772 Injection Completed 07/10/2006 71121 Injection Completed 07/03/2006 66984 Injection Completed 06/28/2006 68170 Injection Completed 06/12/2006 50428 Injection Completed 06/05/2006 09551 Injection Completed 05/29/2006 34861 Injection Completed 05/24/2006 77444 Extract 1-10 Completed 05/03/2006 24588 Pulmonary Function Test Completed 04/26/2006 89659 Skin Test Scratch # Of Units ____ Completed Encounters Type Date Location Provider CPT E/M Dx Office Visit 06/26/2017 11:40a [place] Saavedra M.D. 52274 J30.1 J30.2 J30.81 J30.89 J45.40 Office Visit 12/26/2016 8:40a [place] Ivon Saavedra M.D. 88086 J30.89 J30.81 J30.2 J30.1 J45.40 Office Visit 06/25/2016 3:20p [place] Cecilia Samson [facility] 95657 Z68.24 J30.89 J30.81 J30.2 J30.1 J45.40 Office Visit 12/26/2015 3:00p [place] Franchesca Lundrenee [facility]- 45989 J45.40 J30.1 J30.81 J30.89 J30.2 Z68.25 Office Visit 06/22/2015 3:40p [place] Sienna Cruz, PH.D, [facility] [address] 477.8 477.0 112.0 V85.1 Office Visit 02/21/2015 10:00a [place], PH.D, [facility] 75648 477.0 477.8 493.00 Office Visit 12/15/2014 11:00a [place] Guy M.D. 46112 477.0 477.8 493.00 Office Visit 09/08/2014 11:40a [place] Guy M.D. 11634 477.8 477.0 493.00 Office Visit 06/18/2014 10:00a [place] [facility] 42168 493.00 Office Visit 05/26/2014 11:40a [place] Guy M.D. 06823 477.0 477.8 493.00 Office Visit 03/29/2014 2:20p [place] Cecilia Samson [facility]- 57627 477.0 477.8 493.00 530.81 Office Visit 02/24/2014 3:40p [place] Post [facility]-C 33429 477.0 477.8 493.00 Office Visit 01/25/2014 3:40p [place] Post [facility]-C 77342 493.00 477.8 477.0 Office Visit 01/04/2014 3:40p [place] Post [facility]- 43706 477.8 477.0 493.00 Office Visit 10/21/2013 10:40a [place] Janine Guy M.D. 77708 493.00 477.8 477.0 Office Visit 10/07/2013 1:20p [place] M.[place]. 68837 493.00 477.8 477.0 461.0 Office Visit 09/28/2013 2:20p [place] Randi Post, DIETARY DIRECTOR-C 28973 477.0 493.00 477.8 Office Visit 08/26/2013 11:20a [place] Cecilia Samson, RPA-C 05876 477.0 477.8 493.00 461.0 Office Visit 07/20/2013 2:20p [place] Randi Post, DIETARY DIRECTOR-C 24445 477.0 493.00 461.0 Office Visit 07/06/2013 11:40a [place] Randi Post DIETARY DIRECTOR-C 57904 493.92 477.0 Office Visit 04/29/2013 2:00p [place] Cecilia Samson, RPA-C 55568 477.8 477.0 493.00 Office Visit 09/08/2012 2:02p [place] Nadir Ford M.D. 84190 477.0 477.8 493.00 Office Visit 04/17/2010 11:20[place] [address] 477.0 477.8 493.90 Office Visit 08/22/2007 4:30p [place] Vadim Nowak M.D. 52169 477.0 477.8 Office Visit 04/26/2006 10:15a [place] Vadim Nowak M.D. 79093 477.0 477.8 493.90 Plan of Care Future Appointment(s):06/26/2018 9:00 am - Allergy Injection at [id number] - Ivon Saavedra M.D.J30.1 Allergic rhinitis due to [id number] Other allergic [id number] Moderate persistent asthma, uncomplicatedFollow up:6-12 months, CHECK-UP/FOLLOW UP VISIT: Continued management of patient's medical care , sooner if neededRecommendations:Albuterol via neb x 1 now continue Symbicort 80/4.5 2 puffs twice daily; rinse mouth after use. Increase to 160/4.5 2 puffs twice daily for the next 2 weeks. continue f/u with pulmonary - Dr. Tubbs continue Ventolin 2 puffs every 4 hours as needed for cough, shortness of breath or chest tightness; call if using consistently >2x/week continue Levocetirizine 5 mg once daily continue Singulair 10mg once daily continue Patanase as needed okay to continue IT - hold today call Saturday if sinus symptoms worsen
[2018-07-15 16:07] VITALS: BP 142/89
--- NOTE | 2018-07-15 16:09 | UC ---
Complaint Female HPI - HPI Summary HPI Summary: 62 yo female presents with urinary urgency, frequency, and cloudy urine for the last 2 days. Says she has had many UTIs in the past and this feels the same. She was on Macrobid and Augmentin for UTIs in the last 3 months and is followed by Dr. Bruce of Urology for this. Denies fever, chills, abdominal pain, n/v/d/c, hematuria, flank pain. - History Of Current Complaint Chief Complaint: UCGU Stated Complaint: BLADDER COMPLAINT Time Seen by Provider: 07/15/18 16:09 Hx Obtained From: Patient Onset/Duration: Gradual Onset Timing: Constant Severity Initially: Mild Severity Currently: Moderate Pain Intensity: 6 Pain Scale Used: 0-10 Numeric - Allergies/Home Medications Allergies/Adverse Reactions: Allergies Allergy/AdvReac Type Severity Reaction Status Date / Time tiotropium Allergy See Comment Verified 07/15/18 16:07 [From Spiriva with HandiHaler] PMH/Surg Hx/FS Hx/Imm Hx - Additional Past Medical History Additional PMH: Osteoporosis Respiratory History: Asthma - Surgical History Surgical History: Yes Surgery Procedure, Year, and Place: LT SHOULDER SURGURY 2003basal cell ca removalTONSILS A KID - Family History Known Family History: Positive: None - Social History Lives: With Family Alcohol Use: Occasionally Substance Use Type: None Smoking Status (MU): Never Smoked Tobacco Review of Systems Constitutional: Negative Skin: Negative Eyes: Negative ENT: Negative Respiratory: Negative Cardiovascular: Negative Gastrointestinal: Negative Genitourinary: Dysuria, Frequency, Urgency Neurovascular: Negative Neurological: Negative Psychological: Negative All Other Systems Reviewed And Are Negative: Yes Physical Exam - Summary Physical Exam Summary: GENERAL: NAD. WDWN. No pain distress. SKIN: No rashes, sores, lesions, or open wounds. NECK: Supple. Nontender. No lymphadenopathy. CHEST: CTAB. No r/r/w. No accessory muscle use. Breathing comfortably and in no distress. CV: RRR. Without m/r/g. Pulses intact. Cap refill <2seconds ABDOMEN: Soft. NTTP. No distention or guarding. No CVA tenderness. Bowel sounds present NEURO: Alert. CN II-XII grossly intact. PSYCH: Age appropriate behavior. Triage Information Reviewed: Yes Vital Signs: Initial Vital Signs Temp 98.3 F 07/15/18 16:04 Pulse 74 07/15/18 16:04 Resp 18 07/15/18 16:04 BP 142/89 07/15/18 16:04 Pulse Ox 99 07/15/18 16:04 Laboratory Tests 07/15/18 16:23 POC Urine Color Yellow POC Urine Clarity Slightly cloudy POC Urine pH 7.0 POC Ur Specif [place] <= 1.005 L POC Urine Protein Negative POC Ur Glucose (UA) Negative POC Urine Ketones Negative POC Urine Blood Trace-intact A POC Urine Nitrite Negative POC Urine Bilirubin Negative POC Urine Urobilinogen 0.2 POC U Leukocyte Esteras 3+ A Vital Signs Reviewed: Yes Complaint Female Dx - Course Course Of Treatment: UA with signs of infection. Given her recent anbx use will rx for Cipro for 1 week. Advised to f/u with Urology and will send urine for culture - Differential Dx/Diagnosis Provider Diagnoses: UTI Discharge - Sign-Out/Discharge Documenting (check all that apply): Patient Departure All imaging exams completed and their final reports reviewed: No Studies - Discharge Plan Condition: Stable Disposition: HOME Prescriptions: Ciprofloxacin TAB* [Cipro 250 MG Tab*] 250 mg PO BID #14 tab Patient Education Materials: Urinary Tract Infection in Women (DC) Referrals: Sierra Jimenez MD [Primary Care Provider] - Additional Instructions: If you develop a fever, shortness of breath, chest pain, new or worsening symptoms - please call your PCP or go to the ED. Your blood pressure was high at todays visit. Please see your primary provider within 4 weeks for recheck and re-evaluation. - Billing Disposition and Condition Condition: STABLE Disposition: Home
--- NOTE | 2018-07-17 13:06 | UC ---
- Progress Note Progress Note: 07/17/2018 Urine culture final reports possible contamination. Pt Rx ciprofloxacin PO and Advised to f/u w/ Dr Saenz. Please call back Pt and notify her of contamination and to please f/u w/ Urologist for further treatment. Thank you Juana Mcgee PA-C Discharge - Sign-Out/Discharge Documenting (check all that apply): Patient Departure - D/c home All imaging exams completed and their final reports reviewed: No Studies - Discharge Plan Condition: Stable Disposition: HOME Prescriptions: Ciprofloxacin TAB* [Cipro 250 MG Tab*] 250 mg PO BID #14 tab Patient Education Materials: Urinary Tract Infection in Women (DC) Referrals: Sierra Jimenez MD [Primary Care Provider] - Additional Instructions: If you develop a fever, shortness of breath, chest pain, new or worsening symptoms - please call your PCP or go to the ED. Your blood pressure was high at todays visit. Please see your primary provider within 4 weeks for recheck and re-evaluation. - Billing Disposition and Condition Condition: STABLE Disposition: Home
== END 2018-07-15 16:46 | disposition home or self-care (01) ==
LOC: UCEAST 15:51
DX: N39.0 Urinary tract infection, site not specified (principal); Z87.440 Personal history of urinary (tract) infections
CPT/HCPCS: 81003; 87086; 99212; G0463

== ENCOUNTER 2018-08-02 18:32 | Emergency (ER) | payer BC ==
[2018-08-02 18:50] VITALS: BP 138/64
[2018-08-02] MEDS ORDERED: Nitrofurantoin Macrocrystals* 50 MG CAP PO ONE (19:52)
--- NOTE | 2018-08-02 19:54 | UC ---
Complaint Female HPI - HPI Summary HPI Summary: c/oPain and burning with urination for a couple of days--noticed urine to be dark and cloudy - History Of Current Complaint Chief Complaint: UCGU Stated Complaint: POSS UTI Time Seen by Provider: 08/02/18 18:51 Hx Obtained From: Patient ?: No Onset/Duration: Sudden Onset, Lasting Days Timing: Constant Pain Intensity: 5 Pain Scale Used: 0-10 Numeric Character: Burning, Cramping Aggravating Factor(s): Urination Associated Signs And Symptoms: Positive: Negative - Allergies/Home Medications Allergies/Adverse Reactions: Allergies Allergy/AdvReac Type Severity Reaction Status Date / Time tiotropium Allergy See Comment Verified 08/02/18 18:43 [From Spiriva with HandiHaler] PMH/Surg Hx/FS Hx/Imm Hx Previously Healthy: No Respiratory History: Asthma - Surgical History Surgical History: Yes Surgery Procedure, Year, and Place: LT SHOULDER SURGURY 2003basal cell ca removalTONSILS A KID - Family History Known Family History: Positive: None, Unknown, Other - SISTER HAD SHINGLES Family History: noncontributory - Social History Occupation: Employed Full-time Lives: With Family Alcohol Use: Occasionally Substance Use Type: None Smoking Status (MU): Never Smoked Tobacco Review of Systems Constitutional: Negative Skin: Negative Eyes: Negative ENT: Negative Respiratory: Negative Cardiovascular: Negative Gastrointestinal: Negative Genitourinary: Dysuria, Frequency, Urgency Motor: Negative Neurovascular: Negative Musculoskeletal: Negative Neurological: Negative Psychological: Negative Is Patient Immunocompromised?: No All Other Systems Reviewed And Are Negative: Yes Physical Exam Triage Information Reviewed: Yes Appearance: Well-Appearing, No Pain Distress, Well-Nourished Vital Signs: Initial Vital Signs Temp 97.6 F 08/02/18 18:44 Pulse 70 08/02/18 18:44 Resp 18 08/02/18 18:44 BP 138/64 08/02/18 18:44 Pulse Ox 100 08/02/18 18:44 Vital Signs Reviewed: Yes Eye Exam: Normal Eyes: Positive: Conjunctiva Clear ENT Exam: Normal ENT: Positive: Normal ENT inspection, Hearing grossly normal. Negative: Trismus , Muffled voice, Hoarse voice Dental Exam: Normal Neck exam: Normal Neck: Positive: Supple, Nontender Respiratory Exam: Normal Respiratory: Positive: Chest non-tender, Normal breath sounds, No respiratory distress, No accessory muscle use Cardiovascular Exam: Normal Cardiovascular: Positive: RRR, Pulses Normal, Brisk Capillary Refill Abdominal Exam: Normal Abdomen Description: Positive: Nontender, No Organomegaly, Soft. Negative: CVA Tenderness (R), CVA Tenderness (L) Musculoskeletal Exam: Normal Musculoskeletal: Positive: Strength Intact, ROM Intact, No Edema Neurological Exam: Normal Neurological: Positive: Alert, Muscle Tone Normal Psychological Exam: Normal Skin Exam: Normal Complaint Female Dx - Course Course Of Treatment: increase fluids, culture urine macrobic follow with pcp prn - Differential Dx/Diagnosis Provider Diagnoses: uti Discharge - Sign-Out/Discharge Documenting (check all that apply): Patient Departure All imaging exams completed and their final reports reviewed: No Studies - Discharge Plan Condition: Stable Disposition: HOME Prescriptions: Nitrofurantoin Monohyd/M-Cryst [Macrobid 100 mg Capsule] 100 mg PO BID #20 cap Patient Education Materials: Urinary Tract Infection in Women (ED) Referrals: Sierra Jimenez MD [Primary Care Provider] - If Needed - Billing Disposition and Condition Condition: STABLE Disposition: Home - Attestation Statements Provider Attestation: Per institutional requirements, I have reviewed the chart, however, I was not consulted specifically or made aware of this patient by the midlevel provider. I did not personally evaluate, interact with , or disposition this patient.
--- NOTE | 2018-08-04 19:14 | UC ---
- Progress Note Progress Note: 08/04/2018 Urine culture positive for E.Coli. Pt Rx Macrobid PO which cover for it Pending Culture sensitivity No change Juana Mcgee PA-C Discharge - Sign-Out/Discharge Documenting (check all that apply): Patient Departure - D/C home All imaging exams completed and their final reports reviewed: No Studies - Discharge Plan Condition: Stable Disposition: HOME Prescriptions: Nitrofurantoin Monohyd/M-Cryst [Macrobid 100 mg Capsule] 100 mg PO BID #20 cap Patient Education Materials: Urinary Tract Infection in Women (ED) Referrals: Sierra Jimenez MD [Primary Care Provider] - If Needed - Billing Disposition and Condition Condition: STABLE Disposition: Home
== END 2018-08-02 20:12 | disposition home or self-care (01) ==
LOC: UCEAST 18:32
DX: N39.0 Urinary tract infection, site not specified (principal); B96.20 Unspecified Escherichia coli [E. coli] as the cause of diseases classified elsewhere; Z88.8 Allergy status to other drugs, medicaments and biological substances
CPT/HCPCS: 81003; 87077; 87086; 87186; 87798; 99212; A9270-GY; G0463

== ENCOUNTER 2018-08-30 14:03 | Emergency (ER) | payer BC, OTHER ==
--- OUTSIDE RECORDS SUMMARY | 2018-08-30 14:09 | XMS REPORT ---
:1955 External Reference #:[id number] Author Organization [employer] Address [address] [place] [address] [place] [address] Phone [phone] Care Team Providers Name Role Phone Sierra Jimenez MD Primary Care Physician Unavailable Payers Type Date Identification Numbers Payment Provider Subscriber Commercial Policy Number: [id number] [facility] Mary Marrero PayID: [id number] [address] [place] [address] Problems Date Description Provider Status Onset: 03/08/2012 Asthma without status asthmaticus Sheila Benavidez M.D., [facility] Active Onset: 10/19/2014 Osteoporosis Sierra Jimenez M.D. Active Onset: 02/16/2015 Diverticulosis of sigmoid colon Sierra Jimenez M.D. Active Onset: 02/16/2015 Tubular adenoma Sierra Jimenez M.D. Active Onset: 02/16/2015 Family history of cancer of colon Sierra Jimenez M.D. Active Note: father age 63 Onset: 12/17/2017 Impaired fasting glycaemia Sierra Jimenez M.D. Active Onset: 03/08/2012 Osteochondropathy Mary Yarbrough M.D. 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 08/31/2010 No Known Drug Allergy inactive Medications Medication Date Status Form Strength Qnty SIG Indications Ordering Provider Raloxifene HCL 04/12 Active Tablets 60mg 90tab 1 PO daily M81.0 Sierra /2015 s Gianfranco Jimenez Calcium 500 +D 02/16 Active Tablets 500-400mg 60tab 1 by mouth Sierra /2015 -Unit s once a day Gianfranco Jimenez Montelukast 12/21 Active Tablets 10mg 90tab Take 1 Sheila Sodium s Tablet By Reema, Mouth Once M.D., Daily FACP Ventolin HFA Active Aerosol 108(90Bas 1unit 2 puffs po Unknown /0000 e) mcg/ac s qid prn Levocetirizine Active Tablets 5mg 30tab 1 po qd Unknown Dihydrochloride / s Symbicort Active Aerosol 80-4.5mcg 2 puffs Unknown /0000 /Act twice a day rinse mouth after using Amoxicillin/Clav 01/08 Hx Tablets 875-125mg 20tab 1 by mouth H66.91 Darrius meléndez s twice a day Peri Mckinnon.DJuan Carlos 08/26 Ibandronate 08/24 Hx Tablets 150mg 6tabs once a 733.01 Sierra Sodium month Fam Jimenez M.DJuan Carlos 02/16 Clindamycin 08/02 Hx Gel 1% 30uni apply 1 Sierra Phosphate ts application Fam Jimenez topically M.D. 08/19 to affected area 2 times per day x 10 days as needed for breakouts Doxycycline 04/28 Hx Capsules 100mg 28cap one tablet 709.9 Petros Hyclate s twice daily SASHA Varela - until gone 08/02 Nitrofurantoin 09/01 Hx Capsules 100mg 10cap take 1 599.0 Melody /2012 s tablet Hunter, - twice daily M.D. 03/04 for 5 days Estrace 08/26 Hx Cream 0.1mg/GM 42.5u Insert nits Vaginally 1 Reema, - Applicatorf M.D., 08/02 ul 2 Times FACP A Week Ciprofloxacin 02/26 Hx Tablets 500mg 20tab take 1 789.03 Melody s tablet by Harrison, - mouth twice M.D. 03/18 daily for 10 days Metronidazole 02/26 Hx Tablets 500mg 40tab Take 1 789.03 Melody s tablet by Harrison, - mouth every M.D. 03/18 6 hours 10 days Cortisporin-TC 08/31 Hx Suspension 3.3-3-10- 10ml 5 gtts each 0.5mg/ml ear qid for Reema, - 10 days M.D., 09/10 FAC Cipro 07/07 Hx Tablets 500mg 14tab 1 po bid s for 7 days Reema, - M.D., 08/31 FAC Pyridium 07/07 Hx Tablets 100mg 9tabs one po tid for 3 days Reema, - M.D., 08/31 Rhinocort Aqua 07/07 Hx Suspension 32mcg/Act 1 spray in each Reema, - nostril M.D., 08/26 once daily FAC as needed Metronidazole 07/07 Hx Cream 0.75% apply twice daily as Reema, - needed M.D., 08/19 FACP Advair Diskus 07/07 Hx Aerosol 500-50mcg 1mon 1 puff /Dose twice daily Reema, - M.D., 04/28 FACP Estrace 07/07 Hx Cream 0.1mg/GM 42.5u Insert nits Vaginally 1 Reema, - Applicatorf M.D., 06/11 ul 2 Times FACP A Week Singulair 07/07 Hx Tablets 10mg 90tab Take 1 s Tablet By Reema, - Mouth Once M.D., 12/21 Daily FACP Clarithromycin Hx Tablets 500mg 14tab 1 po bid Unknown /0000 s for 3 weeks - ( 1 more 03/18 week left) Ciprofloxacin ER Hx Tablets ER 500mg 20tab bid for 7 Unknown /0000 24HR s days - 03/17 Patanase Hx Solution 0.6% 1 squirt Unknown /0000 bid - 10/15 Olopatadine HCL Hx Solution 0.6% 2 Unknown /0000 sprays/nost - ril two 08/19 times a day /2017 Immunizations CPT Code Status Date Vaccine Lot # [id number] Given 10/02/2017 Influenza Virus Vaccine, Quadrivalent, Split, Preservative Free 53312 Given 09/05/2016 Influenza Virus Vaccine, Quadrivalent, Split Virus, Im Use 14780 Given 03/09/2015 Pneumococcal Conjugate Vaccine 13 Valent For Intramuscular Use 43689 Given 08/24/2014 Influenza Virus Vaccine, Quadrivalent, Split, [id number] Preservative Free [id number] Given 08/26/2012 Fluzone Vaccine [id number] 08111 Given 06/11/2012 Zoster (Zostavax) [id number] 80852 Given 09/29/2009 Influenza Virus Vaccine, Pandemic Formulation 12066 Given 09/29/2009 Influenza Virus 3Yrs & Over 43361 Given 09/29/2009 Administration Swine Flu Shot 20418 Given 12/13/2008 Pneumonia Vaccine 52292 Given 12/12/2007 Tdap - Tetanus/Diptheria/Acellular Pertussis 09347 Given 12/12/2007 Tdap - Tetanus/Diptheria/Acellular Pertussis 22579 Given 10/03/2006 Influenza Virus 3Yrs & Over 93595 Given 10/03/2006 Influenza Virus 3Yrs & Over Vital Signs Date Vital Result Comment 08/19/2018 Height 61 inches 5'1" Weight 130.00 lb Heart Rate 74 /min BP Systolic Sitting 102 mmHg BP Diastolic Sitting 62 mmHg O2 % BldC Oximetry 96 % BMI (Body Mass Index) 24.6 kg/m2 10/15/2017 Height 61 inches 5'1" Weight 134.25 lb Heart Rate 61 /min BP Systolic Sitting 120 mmHg BP Diastolic Sitting 70 mmHg Body Temperature 97.8 F O2 % BldC Oximetry 98 % BMI (Body Mass Index) 25.4 kg/m2 10/01/2017 Height 62 inches 5'2" Weight 133.00 lb Heart Rate 62 /min Respiratory Rate 15 /min Pain Level 1 BMI (Body Mass Index) 24.3 kg/m2 08/27/2017 Height 62 inches 5'2" Weight 135.00 lb BP Systolic 108 mmHg BP Diastolic 64 mmHg Respiratory Rate 15 /min Pain Level 5 BMI (Body Mass Index) 24.7 kg/m2 01/08/2017 Weight 133.00 lb Heart Rate 90 /min BP Systolic Sitting 124 mmHg BP Diastolic Sitting 78 mmHg Respiratory Rate 15 /min Body Temperature 99.9 F O2 % BldC Oximetry 98 % 09/27/2016 Height 62.25 inches 5'2.25" Weight 136.50 lb Heart Rate 81 /min BP Systolic 104 mmHg BP Diastolic 62 mmHg Body Temperature 98.2 F O2 % BldC Oximetry 98 % BMI (Body Mass Index) 24.8 kg/m2 12/07/2015 Height 62.25 inches 5'2.25" Weight 133.00 lb Heart Rate 70 /min BP Systolic Sitting 118 mmHg BP Diastolic Sitting 62 mmHg Respiratory Rate 15 /min Body Temperature 98.0 F O2 % BldC Oximetry 97 % BMI (Body Mass Index) 24.1 kg/m2 08/03/2015 Height 62.25 inches 5'2.25" Weight 125.50 lb Heart Rate 59 /min BP Systolic Sitting 122 mmHg BP Diastolic Sitting 76 mmHg BMI (Body Mass Index) 22.8 kg/m2 04/12/2015 Weight 126.00 lb Heart Rate 73 /min BP Systolic Sitting 123 mmHg BP Diastolic Sitting 76 mmHg O2 % BldC Oximetry 98 % 02/16/2015 Height 62 inches 5'2" Weight 126.00 lb Heart Rate 76 /min BP Systolic Sitting 130 mmHg BP Diastolic Sitting 82 mmHg BMI (Body Mass Index) 23.0 kg/m2 11/02/2014 Weight 132.00 lb Heart Rate 68 /min BP Systolic Sitting 122 mmHg BP Diastolic Sitting 78 mmHg Body Temperature 98.0 F 08/24/2014 Weight 131.00 lb Heart Rate 66 /min BP Systolic Sitting 118 mmHg BP Diastolic Sitting 60 mmHg 08/02/2014 Height 62 inches 5'2" Weight 132.00 lb Heart Rate 72 /min BP Systolic Sitting 126 mmHg BP Diastolic Sitting 80 mmHg BMI (Body Mass Index) 24.1 kg/m2 07/15/2014 Weight 135.00 lb Heart Rate 84 /min BP Systolic Sitting 132 mmHg BP Diastolic Sitting 86 mmHg Body Temperature 96.2 F 04/28/2014 Height 62 inches 5'2" Weight 133.00 lb Heart Rate 64 /min BP Systolic Sitting 110 mmHg BP Diastolic Sitting 68 mmHg Body Temperature 99.2 F BMI (Body Mass Index) 24.3 kg/m2 03/17/2013 Weight 124.00 lb Heart Rate 76 /min BP Systolic Sitting 120 mmHg BP Diastolic Sitting 74 mmHg 03/04/2013 Weight 124.00 lb Heart Rate 72 /min BP Systolic Sitting 126 mmHg BP Diastolic Sitting 70 mmHg Body Temperature 98.2 F Tympanically 09/01/2012 Height 61.5 inches 5'1.50" Weight 121.00 lb Heart Rate 72 /min BP Systolic Sitting 150 mmHg BP Diastolic Sitting 82 mmHg Body Temperature 98.8 F BMI (Body Mass Index) 22.5 kg/m2 08/26/2012 Height 61.5 inches 5'1.50" Weight 121.75 lb Heart Rate 68 /min BP Systolic Sitting 132 mmHg BP Diastolic Sitting 80 mmHg BMI (Body Mass Index) 22.6 kg/m2 06/11/2012 Height 61.5 inches 5'1.50" Weight 124.25 lb Heart Rate 70 /min BP Systolic Sitting 128 mmHg BP Diastolic Sitting 70 mmHg BMI (Body Mass Index) 23.1 kg/m2 03/18/2012 Height 61.5 inches 5'1.50" Weight 124.50 lb Heart Rate 68 /min BP Systolic Sitting 112 mmHg BP Diastolic Sitting 60 mmHg BMI (Body Mass Index) 23.1 kg/m2 02/29/2012 Height 61.5 inches 5'1.50" Weight 122.00 lb Heart Rate 68 /min BP Systolic Sitting 124 mmHg BP Diastolic Sitting 70 mmHg Body Temperature 98.7 F BMI (Body Mass Index) 22.7 kg/m2 02/27/2012 Height 61.5 inches 5'1.50" Weight 124.00 lb Heart Rate 70 /min BP Systolic Sitting 128 mmHg BP Diastolic Sitting 76 mmHg Body Temperature 100.1 F BMI (Body Mass Index) 23.0 kg/m2 08/31/2010 Weight 117.50 lb Heart Rate 70 /min BP Systolic 138 mmHg BP Diastolic 80 mmHg Body Temperature 99.1 F Results Test Date Test Result H/L Range Note Urine Culture And 08/02/2018 Urine Culture SEE RESULT BELOW 1, 2 Sensitivities Poc Urinalysis 08/02/2018 Poc Glucose, Negative Negative Urine Poc Bilirubin, Urine Negative Negative Poc Ketone, Urine Negative Negative Poc Specific [place], Urine 1.015 1.010-1.030 Poc Blood, Urine Negative Negative Poc pH, Urine 7.0 5-9 Poc Protein, Urine Negative Negative Poc Urobilinogen, Urine 0.2 Negative Poc Nitrite, Urine Negative Negative Poc Leukocytes, Urine 2+ Negative Poc Color, Urine Yellow Poc Clarity, Urine Clear 3 Mycoplasma Hominis PCR 08/02/2018 Mycoplasma hominis Source URINE Mycoplasma hominis Result Negative 4 Ureaplasma 08/02/2018 Ureaplasma Source URINE Ureaplasma urealyticum PCR Negative 5 Ureaplasma parvum PCR Negative 6 Urine Culture And 07/15/2018 Urine Culture SEE RESULT BELOW 7, 8 Sensitivities Poc Urinalysis 07/15/2018 Poc Glucose, Negative Negative Urine Poc Bilirubin, Urine Negative Negative Poc Ketone, Urine Negative Negative Poc Specific [place], Urine <=1.005 Low 1.010-1.030 Poc Blood, Urine Trace-intact Negative Poc pH, Urine 7.0 5-9 Poc Protein, Urine Negative Negative Poc Urobilinogen, Urine 0.2 Negative Poc Nitrite, Urine Negative Negative Poc Leukocytes, Urine 3+ Negative Poc Color, Urine Yellow Poc Clarity, Urine Slightly Cloudy 9 Laboratory test finding 12/16/2017 Glucose 95 mg/dL 70-100 Hemoglobin A1c (Glyco HGB) 5.7 % High 4.0-5.6 10 Basic Metabolic Panel 10/07/2017 Sodium 138 mmol/L 133-145 Potassium 4.0 mmol/L 3.5-5.0 Chloride 103 mmol/L 101-111 Co2 Carbon Dioxide 28 mmol/L 22-32 Anion Gap 7 mmol/L 2-11 Glucose 102 mg/dL High 70-100 Blood Urea Nitrogen 8 mg/dL 6-24 Creatinine 0.78 mg/dL 0.51-0.95 BUN/Creatinine Ratio 10.3 8-20 Calcium 9.5 mg/dL 8.6-10.3 Egfr Non- 74.6 >60 Egfr 95.9 >60 11 Laboratory test finding 09/27/2016 Cytology SEE RESULT BELOW 12 HPV Rna Ww/Reflex Genotype Negative Negative 13 Laboratory test finding 09/24/2016 Vitamin D Total 25(Oh) 45.9 ng/mL 30- 50 14 Hepatitis C Antibody Nonreactive Nonreactive 15 Basic Metabolic Panel 09/24/2016 Sodium 138 mmol/L 133-145 Potassium 4.0 mmol/L 3.5-5.0 Chloride 102 mmol/L 101-111 Co2 Carbon Dioxide 30 mmol/L 22-32 Anion Gap 6 mmol/L 2-11 Glucose 100 mg/dL 70-100 Blood Urea Nitrogen 9 mg/dL 6-24 Creatinine 0.70 mg/dL 0.51-0.95 BUN/Creatinine Ratio 12.9 8-20 Calcium 9.9 mg/dL 8.6-10.3 Egfr Non- 84.8 >60 Egfr 109.0 >60 16 Urine Culture And Sensitivities 04/15/2016 Urine Culture SEE RESULT BELOW 17, 18 Lipid Profile (Trig/Chol/HDL) 07/28/2015 Triglycerides 40 mg/dL 19 Cholesterol 171 mg/dL 20 HDL Cholesterol 75.2 mg/dL 21 LDL Cholesterol 88 mg/dL 22 Laboratory test finding 02/16/2015 TSH (Thyroid 0.86 IU/mL 0.34-5.60 Stimulating Horm) Urine Culture And 01/16/2015 Urine Culture (SEE NOTE) 23 Sensitivities Vitamin D, 25 Hydroxy 08/24/2014 25-Hydroxy Vitamin D2 <4.0 ng/mL 25-Hydroxy Vitamin D3 38 ng/mL 25-Hydroxy Vitamin D Total 38 ng/mL 24 Pthi 08/24/2014 PTH Intact 5.5 pmol/L 1.3-9.3 Calcium (PTH Intact) 9.5 mg/dL 8.6-10.3 Pthi 08/03/2014 PTH Intact 5.5 pmol/L 1.3-9.3 Calcium (PTH Intact) 9.5 mg/dL 8.6-10.3 Vitamin D, 25 Hydroxy 08/03/2014 25-Hydroxy Vitamin D2 <4.0 ng/mL 25-Hydroxy Vitamin D3 42 ng/mL 25-Hydroxy Vitamin D Total 42 ng/mL 25 Laboratory test 08/02/2014 Cytology RUN DATE: finding <SEE NOTE> HPV High Risk 08/02/2014 Human Papillomavirus See Comment 27 Source HPV High Risk Type 16, PCR Negative Negative HPV High Risk Type 18, PCR Negative Negative HPV Other Risk types Negative Negative 28 Comp Metabolic Panel 07/27/2014 Sodium 135 mmol/L 133-145 29 Potassium 4.2 mmol/L 3.7-5.6 29 Chloride 101 mmol/L 101-111 29 Co2 Carbon Dioxide 28 mmol/L 22-32 29 Anion Gap 6 mmol/L 2-11 29 Glucose 94 mg/dL 70-100 29 Blood Urea Nitrogen 10 mg/dL 6-24 29 Creatinine 0.72 mg/dL 0.51-0.95 29 BUN/Creatinine Ratio 13.9 8-20 29 Calcium 9.4 mg/dL 8.6-10.3 29 Total Protein 6.0 g/dL Low 6.4-8.9 29 Albumin 4.1 g/dL 3.2-5.2 29 Globulin 1.9 g/dL Low 2-4 29 Albumin/Globulin Ratio 2.2 1-3 29 Total Bilirubin 0.50 mg/dL 0.2-1.0 29 Alkaline Phosphatase 69 U/L 34-104 29 Alt 15 U/L 7-52 29 Ast 18 U/L 13-39 29 Egfr Non- 82.9 >60 29 Egfr 106.6 >60 29, 30 Laboratory test finding 10/07/2013 Tetanus Toxoid IgG 1.46 IU/mL 31 Antibody S.Pneumoniae Igg AB 23 10/07/2013 S. pneumoniae Type 1 IgG 91.4 g/mL >= 2.3 Serotyp AB S. pneumoniae Type 2 IgG AB See Comment g/mL >=1.0 32 S. pneumoniae Type 3 IgG AB 1.6 [...] 17F IgG AB See Comment g/mL >=7.8 33 S. pneumoniae Type 19F IgG AB 6.8 g/mL >=15.0 S. pneumoniae Type 20 IgG AB 1.6 g/mL >=1.3 S. pneumoniae Type 22F IgG AB See Comment g/mL >=7.2 34 S. pneumoniae Type 23F IgG AB 11.3 g/mL >=8.0 S. pneumoniae Type 6B IgG AB 5.5 g/mL >=4.7 S. pneumoniae Type 10A IgG AB See Comment g/mL >=2.9 35 S. pneumoniae Type 11A IgG AB 7.3 g/mL >=2.4 S. pneumoniae Type 7F IgG AB See Comment g/mL >=3.2 36 S. pneumoniae Type 15B IgG AB 14.3 g/mL >=3.3 S. pneumoniae Type 18C IgG AB 20.5 g/mL >=3.3 S. pneumoniae Type 19A IgG AB 2.5 g/mL >=17.1 S. pneumoniae Type 9V IgG AB See Comment g/mL >=2.6 37 S. pneumoniae Type 33F IgG AB 6.1 g/mL >=1.7 38 Laboratory test finding 10/07/2013 C Reactive Protein < 0.5 mg/dL Less than 0.5 Haemophilus influenzae B IgG 0.16 mg/L >=0.15 39 Immunoglobulin G 790 mg/dL 767 - 1590 40 Immunoglobulin M 63 mg/dL 37 - 286 41 Immunoglobulin A 123 mg/dL 61 - 356 42 Immunoglobulin E 10.9 kU/L 43 CBC Auto Diff 10/07/2013 White Blood Count [...] 0-2 Nucleated Red Blood Cells % 0.2 Ua Routine 03/04/2013 Ua Specific [place] 1.005 Ua PH 7.5 Ua Color yellow Ua Appera slightly cloudy Ua WBC small Ua Protein negative Ua Glucose negative Ua Ketones negative Ua Bilirubin negative Ua Urobilinogen negative Ua Nitrite negative Ua Occult Blood negative Ua Routine 09/01/2012 Ua Specific [place] 1.005 Ua PH 7 Ua Color pale yellow Ua Appera clear Ua WBC trace Ua Protein neg Ua Glucose neg Ua Ketones neg Ua Bilirubin neg Ua Urobilinogen neg Ua Nitrite neg Ua Occult Blood neg A1at Deficiency Profile 06/12/2012 A1at Specimen Blood () A1at Specimen Id [id number] () A1at Order Date 13 Jun 2012 13:5 <SEE NOTE> () 44 A1at Reason For Refer SEE BELOW () 45 A1at Method . () 46 A1at Interpretation . () 47 A1at Reviewed By SEE BELOW () 48 A1at Release Date 18 Jun 2012 12:3 <SEE NOTE> () 49 CBC With Manual Diff 06/12/2012 White Blood Count 6.4 CUMM 4.8-10.8 Red Cell Count 3.80 CUMM Low 4.2-5.4 Hemoglobin 12.9 g/dL 12.0-16.0 Hematocrit 37 % 35-47 Mean Corpuscular Volume 98 um3 High 79-97 Mean Corpuscular Hemoglob 34 pg High 27-31 Mean Corpuscular HGB Cone 35 g/dL 32-36 Redcell Distribution WDTH 13 % 10.5-15 Platelet Count 239 CUMM 150-450 Mean Platelet Volume 7.2 um3 Low 7.4-10.4 Absolute Neutrophil Count 4.2 1.5-7.7 Polysegmented Neutrophil 63 % 38-83 Lymphocyte 30 % 25-47 Monocyte 5 % 0-13 Basophil 1 % 0-2 Atypical Lymph 1 % 0-6 Anisocytosis SLIGHT Comp Metabolic Panel 06/12/2012 Sodium 138 mmol/L 135-145 Potassium 3.9 mmol/L 3.5-5.0 Chloride 101 mmol/L 101-111 Co2 (Carbon Dioxide) 28.0 mmol/L 22-32 Anion Gap 9.0 mmol/L 2-11 50 Glucose 100 mg/dL 70-100 BUN 10 mg/dL 6-24 Creatinine 0.7 mg/dL 0.50-1.40 One Over Creatinine 1.42 BUN/Creatinine Ratio 14.3 8-20 Calcium 9.5 mg/dL 8.1-9.9 Total Protein 6.2 GM/DL 6.2-8.1 Albumin 4.1 GM/DL 3.6-5.4 Globulin 2.1 GM/DL 2-4 Albumin/Globulin Ratio 2.0 1-3 Bilirubin Total 0.9 mg/dL 0.4-1.5 51 Alkaline Phosphatase 61 U/L 30-110 Alt (SGPT) 16 U/L 14-54 Ast (Sgot) 22 U/L 12-42 eGFR Non- 86.2 > 60 eGFR 110.9 > 60 52 Lipid Profile (Trig/Chol/HDL) 06/12/2012 Triglyceride 23 mg/dL Low 40-200 Cholesterol 205 mg/dL High Less Than 200 53 High Density Lipoprotein 93 mg/dL High 40-60 54 Cholesterol/HDL Ratio 2.20 AVERAGE 1-4.44 Low Density Lipoprotein 107 mg/dL High Less Than 100 55 Laboratory test 06/11/2012 Cytology <SEE 56 finding NOTE> Urine Culture & 05/10/2012 M <SEE 57 Sensitivi NOTE> Surgical Pathology 05/05/2012 Surgical <SEE 58 Pathology NOTE> Laboratory test 03/07/2012 C Reactive < 0.5 mg/dL Less Than finding Protein 0.5 CBC Auto Diff 03/07/2012 White Blood Count 6.5 CUMM 4.8-10.8 Red Cell Count 4.02 CUMM Low 4.2-5.4 Hemoglobin 13.6 g/dL 12.0-16.0 Hematocrit 40 % 35-47 Mean Corpuscular Volume 99 um3 High 79-97 Mean Corpuscular Hemoglob 34 pg High 27-31 Mean Corpuscular HGB Cone 34 g/dL 32-36 Redcell Distribution WDTH 13 % 10.5-15 Platelet Count 353 CUMM 150-450 Mean Platelet Volume 6.9 um3 Low 7.4-10.4 Gran % 59.7 % 38-83 Lymph % 28.1 % 25-47 Mononuclear % 9.2 % High 1-9 Eosinophil % 2.2 % 0-6 Basophil % 0.8 % 0-2 Abs Lymphs 1.8 1.0-4.8 Abs Mononuclear 0.6 0-0.8 Absolute Neutrophil Count 3.9 1.5-7.7 Abs Eosinophils 0.1 0-0.6 Abs Basophils 0.1 0-0.2 Manual Differential 02/27/2012 Polysegmented Neutrophil 82 % 38-83 59 Lymphocyte 14 % Low 25-47 59 Monocyte 4 % 0-13 59 Absolute Neutrophil Count 10.1 59 RBC Morphology NORMAL 59 Comp Metabolic Panel 02/27/2012 Sodium 136 mmol/L 135-145 59 Potassium 4.0 mmol/L 3.5-5.0 59 Chloride 97 mmol/L Low 101-111 59 Co2 (Carbon Dioxide) 29.0 mmol/L 22-32 59 Anion Gap 10.0 mmol/L 2-11 59, 60 Glucose 97 mg/dL 70-100 59 BUN 6 mg/dL 6-24 59 Creatinine 0.8 mg/dL 0.50-1.40 59 One Over Creatinine 1.25 59 BUN/Creatinine Ratio 7.5 Low 8-20 59 Calcium 9.1 mg/dL 8.1-9.9 59 Total Protein 6.8 GM/DL 6.2-8.1 59 Albumin 4.5 GM/DL 3.6-5.4 59 Globulin 2.3 GM/DL 2-4 59 Albumin/Globulin Ratio 2.0 1-3 59 Bilirubin Total 1.0 mg/dL 0.4-1.5 59, 61 Alkaline Phosphatase 72 U/L 30-110 59 Alt (SGPT) 18 U/L 14-54 59 Ast (Sgot) 21 U/L 12-42 59 eGFR Non- 73.9 > 60 59 eGFR 95.1 > 60 59, 62 CBC Auto Diff 02/27/2012 White Blood Count 12.4 CUMM High 4.8-10.8 59 Red Cell Count 3.99 CUMM Low 4.2-5.4 59 Hemoglobin 13.4 g/dL 12.0-16.0 59 Hematocrit 39 % 35-47 59 Mean Corpuscular Volume 98 um3 High 79-97 59 Mean Corpuscular Hemoglob 34 pg High 27-31 59 Mean Corpuscular HGB Cone 34 g/dL 32-36 59 Redcell Distribution WDTH 13 % 10.5-15 59 Platelet Count 301 CUMM 150-450 59 Mean Platelet Volume 7.8 um3 7.4-10.4 59, 63 Urine Culture & Sensitivi 01/26/2012 M <SEE NOTE> 63 1 [id number] 2 SEE RESULT BELOW Name: ELIDAMARY T : [address]: Ras Samuel MD Acct: [id number] Unit: [id number] AGE: 63 Location: [facility] Re08/02/18 SEX: F Status: DEP ER SPEC: [id number] JOHNY: 08/02/18 [facility] DR: Iona Wood NP REQ: [id number] RECD: 08/03/18-1339 STATUS: RES OTHR DR: Sierra Samuel MD _ SOURCE: URINE SPDESC: ORDERED: Urine Culture COMMENTS: [id number] Procedure Result Reported Site Urine Culture Preliminary 08/04/18- 1522 ML Organism 1 ESCHERICHIA COLI Ulm Count >100,000 (Many) CFU/ML * ML - Main Lab . END OF REPORT DEPARTMENT OF PATHOLOGY, [address] [place] [address] Raza Serrano M.D. Director [facility] # [id number] 3 Power Shovel Engineer: [id number] 4 REFERENCE VALUE Not Applicable ADDITIONAL INFORMATION This test was developed and its performance characteristics determined by [facility] in a manner consistent with CLIA requirements. This test has not been cleared or approved by the U.S. Food and Drug Administration. Test Performed by: [facility] - [address] [address] 5 REFERENCE VALUE Not Applicable 6 REFERENCE VALUE Not Applicable ADDITIONAL INFORMATION This test was developed and its performance characteristics determined by [facility] in a manner consistent with CLIA requirements. This test has not been cleared or approved by the U.S. Food and Drug Administration. Test Performed by: [facility] - [address] [address] 7 [id number] 8 SEE RESULT BELOW Name: MARY MARRERO : [address]: Erik Noriega MD Acct: [id number] Unit: [id number] AGE: 62 Location: [facility] Re07/15/18 SEX: F Status: DEP ER SPEC: [id number] JOHNY: 07/15/18-[address]: Jose Eduardo MCCARTY REQ: [id number] RECD: 07/15/18 STATUS: GABRIELLA BLAIR DR: [facility] Sierra Jimenez MD _ SOURCE: URINE SPDESC: ORDERED: Urine Culture COMMENTS: [id number] Procedure Result Reported Site Urine Culture Final 07/16/18- 1634 ML Few Enterobacteriacae; possible contamination. * ML - Main Lab . END OF REPORT DEPARTMENT OF PATHOLOGY, [address] [place] [address] Raza Serrano M.D. Director [facility] # [id number] 9 Power Shovel Engineer: [id number] 10 Therapeutic target for the treatment of diabetes mellitus patients is <7% HBA1C, and in selective patients <6.0%. Please refer to Citizen [place] Diabetes Association diabetic care guidelines for further information. 11 Because ethnic data is not always readily available, this report includes an eGFR for both -Americans and non- Americans. The National Kidney Disease Education Program (NKDEP) does not endorse the use of the MDRD equation for patients that are not between the ages of 18 and 70, are , have extremes of body size, muscle mass, or nutritional status, or are non- or non-. According to the National Kidney Foundation, irrespective of diagnosis, the stage of the disease is based on the level of kidney function: Stage Description GFR(mL/min/1.73 m(2)) 1 Kidney damage with normal or decreased GFR 90 2 Kidney damage with mild decrease in GFR 60-89 3 Moderate decrease in GFR 30-59 4 Severe decrease in GFR 15-29 5 Kidney failure <15 (or dialysis) 12 SEE RESULT BELOW Name: ELIDAMARY Jacquie : [address]: Sierra Jimenez MD Acct: [id number] Unit: [id number] AGE: 61 Location: [facility] Re09/27/16 SEX: F Status: REG REF SPEC: [id number] JOHNY: 09/27/16-1017 [facility] DR: Sierra Jimenez MD REQ: [id number] RECD: 09/27/16-1212 STATUS: SOUT _ ORDERED: IMAGE ANALYSIS, HPV/Thin Prep, HPV 16/18 GENE COMMENTS: [id number] FINAL DIAGNOSIS Negative for Intraepithelial lesion or Malignancy A. Ectocervical/Endocervical Specimen Adequacy: Satisfactory of evaluation Transformation zone component identified Patient Information: HPV: High risk HPV RNA testing regardless of pap results. HPV 16/18 Genotype Reflex Actual Specimen Date: 09/27/16 Post Menopausal?: Y Previous Abnormal Pap Smears?:Y If Yes, enter Diagnosis: genital warts in past, mother had cervical cancer Date Time Test Result Flag (u) Normal Range 09/27/16 1017 HPV RNA RFLX GE Negative Negative The high-risk HPV types detected by the assay include: 16, 18, 31, 33, 35, 39, 45, 51, 52, 56, 58, 59, 66, and 68. Signed (signature on file) ELVIN May (SAN [facility]) 09/28 1320 This Pap test was evaluated with the assistance of the Spine Wave Test Imaging System. Due to cytologic findings at the professor of art history microscope, comprehensive manual rescreening by a Resistor Coater may be required. The Pap Smear is a screening test designed to aid in the detection of premalignant and malignant conditions of the uterine cervix. It is not a diagnostic procedure and should not be used as the sole means of detecting cervical cancer. Both false- positive and false- negative reports do occur. Depending on your risk status, a Pap smear should be obtained and evaluated every 1-3 years. END OF REPORT * ML=Testing performed at Main Lab DEPARTMENT OF PATHOLOGY, [address] [place] [address] Raza Serrano M.D. Director [facility] # [id number] 13 The high-risk HPV types detected by the assay include: 16, 18, 31, 33, 35, 39, 45, 51, 52, 56, 58, 59, 66, and 68. 14 FASTING 10 HOUR 15 FASTING 10 HOUR 16 Because ethnic data is not always readily available, this report includes an eGFR for both -Americans and non- Americans. The National Kidney Disease Education Program (NKDEP) does not endorse the use of the MDRD equation for patients that are not between the ages of 18 and 70, are , have extremes of body size, muscle mass, or nutritional status, or are non- or non-. According to the National Kidney Foundation, irrespective of diagnosis, the stage of the disease is based on the level of kidney function: Stage Description GFR(mL/min/1.73 m(2)) 1 Kidney damage with normal or decreased GFR 90 2 Kidney damage with mild decrease in GFR 60-89 3 Moderate decrease in GFR 30-59 4 Severe decrease in GFR 15-29 5 Kidney failure <15 (or dialysis) 17 [id number] SEE RESULT BELOW Name: MARREROMENDEZ SAUNDERSLo Dhillon : [address]: Phil Whitman MD Acct: [id number] Unit: [id number] AGE: 60 Location: [facility] Re04/15/16 SEX: F Status: DEP ER SPEC: [id number] JOHNY: 04/15/16 [facility] DR: Iona Wood NP REQ: [id number] RECD: 04/16/16 STATUS: GABRIELLA BLAIR DR: Phil Sanchez MD _ SOURCE: URINE SPDESC: ORDERED: Urine Culture COMMENTS: [id number] Procedure Result Reported Site Urine Culture Final 04/17/16- 1340 ML No Growth (<1,000 CFU/mL) * ML - MAIN LAB ([facility]) . END OF REPORT * ML=Testing performed at Main Lab DEPARTMENT OF PATHOLOGY, [address] [place] [address] Raza Serrano M.D. Director [facility] # [id number] 19 Desirable <150 Borderline high 150-199 High 200-499 Very High >500 20 Desirable <200 Borderline high 200-239 High >239 21 Low <40 Desirable: 40-60 High: >60 22 Desirable: <100 mg/dL Near Optimal: 100-129 mg/dL Borderline High: 130-159 mg/dL High: 160-189 mg/dL Very High: >189 mg/dL 23 RUN DATE: 01/19/15 [facility] LAB LIVE PAGE 1 RUN TIME: [address] [place] [address] Specimen Inquiry Name: MARY MARRERO : [address]: Ras Samuel MD Acct: [id number] Unit: [id number] AGE: 59 Location: [facility] Re01/16/15 SEX: F Status: DEP ER SPEC: [id number] JOHNY: 01/16/15-1334 [facility] DR: Ras Samuel MD REQ: [id number] RECD: 01/17/15 STATUS: GABRIELLA BLAIR DR: O'[facility] Sierra Jimenez MD _ SOURCE: URINE SPDESC: ORDERED: Urine Culture Procedure Result Verified Site Urine Culture Final 01/19/15- 1015 ML Organism 1 STREP GROUP B [place] Count 10-25,000 (Moderate) CFU/ML Susceptibility testing of penicillins and other B-lactams approved by FDA for treatment of Streptococcus pyogenes (Group A Strep) and Streptococcus agalactiae (Group B Strep) is not necessary for clinical purposes and need not be done routinely, since as with vancomycin, resistant strains have not been recognized. (CLSI W162-Z69;p.66) Positive isolates will be saved for one week. Please call the Microbiology Laboratory if further susceptibility testing is needed. END OF REPORT * ML=Testing performed at Main Lab DEPARTMENT OF PATHOLOGY, [address] [place] [address] Raza Serrano M.D. Director [facility] # [id number] 24 REFERENCE VALUE 25-HYDROXY D TOTAL (D2+D3) Optimum levels in the healthy population are 20-50, patients with bone disease may benefit from higher levels within this range. Test Performed by: [address] [address] Tobacco Stripping Machine Operator: Van Rucker M.D. 25 -- REFERENCE VALUE -- 25-HYDROXY D TOTAL (D2+D3) Optimum levels in the healthy population are 20-50, patients with bone disease may benefit from higher levels within this range. Test Performed by: [facility] - [address] [address] Tobacco Stripping Machine Operator: Nahid Arreola III, M.D. 26 RUN DATE: 08/03/14 [facility] LAB LIVE PAGE 1 RUN TIME: [address] [place] [address] Specimen Inquiry Name: MARY MARRERO : [address]: Sierra Jimenez MD Acct: [id number] Unit: [id number] AGE: 59 Location: [facility] Re08/02/14 SEX: F Status: REG REF SPEC: [id number] JOHNY: 08/02/14-[address]: Sierra Jimenez MD REQ: [id number] RECD: 08/02/147523 STATUS: SOUT _ ORDERED: IMAGE ANALYSIS, HPV/Thin Prep FINAL DIAGNOSIS Negative for Intraepithelial lesion or Malignancy COMMENTS: Specimen sent to [facility] in [place], [place] on 08/03/14 by [id number] at 0949. Results will be reported separately. A. Ectocervical/Endocervical Specimen Adequacy: Satisfactory of evaluation Transformation zone component identified Patient Information: HPV: High risk HPV DNA testing regardless of pap results. Actual Specimen Date: 08/02/14 LMP If Unknown: 2006 Post Menopausal?: Y Signed (signature on file) ELVIN May (ASCP) 08/03 1216 This Pap test was evaluated with the assistance of the SansanPrep Test Imaging System. Due to cytologic findings at the professor of art history microscope, comprehensive manual rescreening by a Resistor Coater may be required. The Pap Smear is a screening test designed to aid in the detection of premalignant and malignant conditions of the uterine cervix. It is not a diagnostic procedure and should not be used as the sole means of detecting cervical cancer. Both false- positive and false- negative reports do occur. Depending on your risk status, a Pap smear shoudl be obtained and evaluated every 1-3 years. END OF REPORT * ML=Testing performed at Main Lab DEPARTMENT OF PATHOLOGY, [address] [place] [address] Raza Serrano M.D. Director [facility] # [id number] 27 RESULT: Ectocervical/Endocervical 28 The following Other High Risk HPV types were not detected: 31, 33, 35, 39, 45, 51, 52, 56, 58, 59, 66, and 68 Test Performed by: [place] [address] Tobacco Stripping Machine Operator: Nahid R. Cockerill, III, M.D. 29 FASTING 10 HOUR 30 Because ethnic data is not always readily available, this report includes an eGFR for both -Americans and non- Americans. The National Kidney Disease Education Program (NKDEP) does not endorse the use of the MDRD equation for patients that are not between the ages of 18 and 70, are , have extremes of body size, muscle mass, or nutritional status, or are non- or non-. According to the National Kidney Foundation, irrespective of diagnosis, the stage of the disease is based on the level of kidney function: Stage Description GFR(mL/min/1.73 m(2)) 1 Kidney damage with normal or decreased GFR 90 2 Kidney damage with mild decrease in GFR 60-89 3 Moderate decrease in GFR 30-59 4 Severe decrease in GFR 15-29 5 Kidney failure <15 (or dialysis) 31 The minimum level of protective antibody in the normal population is between 0.01 and 0.15 IU/mL. The majority of vaccinated individuals should demonstrate protective levels of antibody > 0.15 IU/mL. Test Performed by: [place] [address] Tobacco Stripping Machine Operator: Nahid Arreola III, M.D. 32 No result available due to non-linear dilution response for this serotype. See Interpretation. 33 No result available due to non-linear dilution response for this serotype. See Interpretation. 34 No result available due to non-linear dilution response for this serotype. See Interpretation. 35 No result available due to non-linear dilution response for this serotype. See Interpretation. 36 No result available due to non-linear dilution response for this serotype. See Interpretation. 37 No result available due to non-linear dilution response for this serotype. See Interpretation. 38 Unable to quantitate serotypes 2 (2), 17F [...] only present in Prevnar-13. Test Performed by: [place] [address] Tobacco Stripping Machine Operator: Nahid Arreola III, M.D. 39 The minimum level of protective antibody in the normal population is 0.15 mg/L. However, the optimum antibody level to confer fpc immunity is >=1.0 mg/L post vaccination. Test Performed by: [place] [address] Tobacco Stripping Machine Operator: Nahid Arreola III, M.D. 40 Test Performed by: [place] [address] Tobacco Stripping Machine Operator: Nahid Arreola III, M.D. 41 Test Performed by: [place] [address] Tobacco Stripping Machine Operator: Nahid Arreola III, M.D. 42 Test Performed by: [place] [address] Tobacco Stripping Machine Operator: Nahid Arreola III, M.D. 43 -- REFERENCE VALUE -- Mean 13.2 +1SD 41.0 +2SD 127.0 Test Performed by: [place] [address] Tobacco Stripping Machine Operator: Nahid Arreola III, M.D. 44 13 Jun 2012 13:54 45 RESULT: Determine the A1A genotype. 46 A PCR-based analysis was used to specifically detect the S and Z alleles associated with A1A deficiency in the SERPINA1 gene. Other variants are not detected by this assay. The serum A1A level was measured by nephelometry. 47 The absence of the S and the Z allele, along with the observed serum level of alpha 1 antitrypsin (A1A), suggests that this patient does not have A1A deficiency. This result does not rule out the presence of other variants in the SERPINA1 gene. Therefore, this result should be interpreted in the context of clinical presentation and other laboratory tests. A genetic consultation may be of benefit. CAUTIONS: Rare polymorphisms exist that could lead to false negative or positive results. If results obtained do not match the clinical findings, additional testing should be considered. Test results should be interpreted in context of clinical findings, family history, and other laboratory data. Misinterpretation of results may occur if the information provided is inaccurate or incomplete. Bone marrow transplants from allogenic donors will interfere with testing. Call [facility] for instructions for testing patients who have received a bone marrow transplant. Laboratory developed test. 48 RESULT: Rupesh Shabazz MD, PhD 49 18 Jun 2012 12:32 Test Performed by: [place] [address] Tobacco Stripping Machine Operator: Nahid Arreola III, M.D. 50 Anion gap measurement may be of limited value in the presence of any alkalosis, especially in a combined acid base disorder. . 51 A metabolite of Naproxen, O-desmethylnaproxen, has been shown to interfere with the Jendrassik-Lennon method for measuring total bilirubin. Samples from patients who have taken Naproxen have shown spurious elevation in total bilirubin levels. 52 Because ethnic data is not always readily available, this report includes an eGFR for both -Americans and non- Americans. The National Kidney Disease Education Program (NKDEP) does not endorse the use of the MDRD equation for patients that are not between the ages of 18 and 70, are , have extremes of body size, muscle mass, or nutritional status, or are non- or non-. According to the National Kidney Foundation, irrespective of diagnosis, the stage of the disease is based on the level of kidney function: Stage Description GFR(mL/min/1.73 m(2)) 1 Kidney damage with normal or decreased GFR 90 2 Kidney damage with mild decrease in GFR 60-89 3 Moderate decrease in GFR 30-59 4 Severe decrease in GFR 15-29 5 Kidney failure <15 (or dialysis) 53 CHOLESTEROL INTERPRETATION: Desirable: Less than 200 MG/DL Borderline-High Risk: 200-239 MG/DL High-Risk: 240 MG/DL and over 54 HDL INTERPRETATION: Undesirable: High Risk: Less than 40 MG/DL Desirable: Low Risk: Greater than 60 MG/DL 55 LDL INTERPRETATION: Low Risk Optimal Level: LDL Less than 100 MG/DL Near or Above Optimal: LDL 100-129 MG/DL Borderline High Risk: LDL 130-159 MG/DL High Risk: LDL 160-189 MG/DL Very High Risk: LDL Greater than 189 MG/DL 56 ---- RUN DATE: 06/12/12 [facility] NMI LIVE PAGE 1 RUN TIME: 1508 Specimen Inquiry RUN USER: INTERFACE -- Name: MARY MARRERO Status: REG REF Re06/11/12 Age/Sex: 56/F Unit#: [id number] [facility] [birth year] -- Specimen: [id number] Spec Date:06/11/12-[address] [facility] [address]: Sheila Cote Spec Type: CYTOLOGY Received:06/12/12-1125 Copies to: SOURCE ECTOCERVICAL/ENDOCERVICAL Thin Prep with Reflex HPV Test PATIENT INFORMATION ACTUAL COLLECTION DATE: 06/11/12 ? No POST MENOPAUSAL? Yes HYSTERECTOMY? No PREVIOUS ABNORMAL PAP SMEARS No PATIENT HISTORY: Last menstrual period 2006 ADEQUACY OF SPECIMEN Satisfactory for evaluation * Transformation zone component identified * DIAGNOSIS NEGATIVE FOR INTRAEPITHELIAL LESION OR MALIGNANCY * This Pap test was evaluated with the assistance of the ThinPrep Pap Test Imaging System. The Pap Smear is a screening test designed to aid in the detection of premalign ant and malignant conditions of the uterine cervix. It is not a diagnostic procedure a nd should not be used as the sole means of detecting cervical cancer. Both false- positiv e and false-negative reports do occur. Depending on your risk status, a Pap smear mecca uld be obtained and evaluated every one to three years. Initial evaluation performed by Eliana STILES(ASCP) 06/12/12 Final Interpretation electronically signed by: Eliana STILES([facility]) 06/12/12 1508 -- -- DEPARTMENT OF PATHOLOGY, [address] [place] [address] [facility] Permit #[id number] Gianfranco Alvarez M.D. Food Science Technician Dir toshia -- 56 RUN DATE: 05/12/12 [facility] NMI LIVE PAGE 1 RUN TIME: 903 Specimen Inquiry RUN USER: INTERFACE Name: MARY MARRERO Status: MANDO CLI Re05/10/12 Age/Sex: 56/F Unit#: [id number] Location: : 53 SPEC #: [id number] JOHNY: 05/10/12 STATUS: COMP REQ #: [id number] RECD: 05/10/[address]: Lizzie ARMENTA,Ras Galloway SOURCE: URINE ENTR: 05/10/[address]: Reema ARMENTA,Sheila SPDESC: ORDERED: URINE C S QUERIES: SPECIMEN DESCRIPTION: URINE, CLEAN CATCH ACT WKST: UR 05/12/12 #1 Procedure Result Verified Site > URINE CULTURE SENSITIVI Final 05/12/12- 903 ML FINAL: NO GROWTH DAY 2 (<1,000 CFU/mL) - [facility] Permit #[id number] [address] [place] [address] DEPARTMENT OF PATHOLOGY, [address] [place] [address] [facility] Permit #[id number] Gianfranco Alvarez M.D. [employer] 58 ---- RUN DATE: 05/07/12 [facility] NMI LIVE PAGE 1 RUN TIME: 144 Specimen Inquiry RUN USER: INTERFACE -- Name: MARY MARRERO Status: REG REF Re05/05/12 Age/Sex: 56/F Unit#: [id number] Location: [address] [place] [address]. : 53 -- Specimen: [id number] SOUT Spec Date:05/05/12- [facility] Dr: Asa Abbasi MD Spec Type: SURGICAL P Received:05/06/12 Copies to: Sheila Benavidez MD SPECIMEN BIOPSY SIGMOID NODULE HISTORY POST-OP DIAGNOSIS: To cecum - 2+ sigmoid diverticulosis; 1+ to mid; all n egative except nodule at 30 CLINICAL INFORMATION: Follow-up polyps; diverticulitis; positive family h istory GROSS DESCRIPTION The specimen is received in formalin labelled Mary Marrero, Biopsy Sigmoid Nodule, and consists of one fragment of yellow tissue measuring 0.3 x 0.3 x 0.3 cm. Submitted entirely, one cassette. DIAGNOSIS Sigmoid colon, biopsy: A. Tubular adenoma. B. No high grade dysplasia or malignancy. Signed Electronically by: GENTRY ALARCON 05/07/12 1448 -- -- DEPARTMENT OF PATHOLOGY, [address] [place] [address] [facility] Permit #[id number] Gianfranco Alvarez M.D. Food Science Technician Dir toshia -- 58 NON FASTING 60 Anion gap measurement may be of limited value in the presence of any alkalosis, especially in a combined acid base disorder. . 61 A metabolite of Naproxen, O-desmethylnaproxen, has been shown to interfere with the Jendrerlinik-Abhishek method for measuring total bilirubin. Samples from patients who have taken Naproxen have shown spurious elevation in total bilirubin levels. 62 Because ethnic data is not always readily available, this report includes an eGFR for both -Americans and non- Americans. The National Kidney Disease Education Program (NKDEP) does not endorse the use of the MDRD equation for patients that are not between the ages of 18 and 70, are , have extremes of body size, muscle mass, or nutritional status, or are non- or non-. According to the National Kidney Foundation, irrespective of diagnosis, the stage of the disease is based on the level of kidney function: Stage Description GFR(mL/min/1.73 m(2)) 1 Kidney damage with normal or decreased GFR 90 2 Kidney damage with mild decrease in GFR 60-89 3 Moderate decrease in GFR 30-59 4 Severe decrease in GFR 15-29 5 Kidney failure <15 (or dialysis) 63 Lymphopenia % 64 RUN DATE: 01/29/12 [facility] NMI LIVE PAGE 1 RUN TIME: 1109 Specimen Inquiry RUN USER: INTERFACE Name: MARY MARRERO#: [id number] Status: MANDO TUCKER Re01/26/12 Age/Sex: 56/F Unit#: [id number] Location: : 53 SPEC #: [id number] JOHNY: 01/26/12-1208 STATUS: COMP REQ #: [id number] RECD: 01/27/12 [facility] DR: Bo ARMENTA,Cecilia Eng SOURCE: URINE ENTR: 01/27/[address]: Reema ARMENTA,Sheila [facility]: ORDERED: URINE C S QUERIES: SPECIMEN DESCRIPTION: URINE, CLEAN CATCH ACT WKST: UR 01/29/12 #1 Procedure Result Verified Site > URINE CULTURE SENSITIVI Final 01/29/12- 1109 ML SCANT NORMAL URETHRAL OR PERINEAL ERROL ML - [facility] Permit #[id number] [address] [place] [address] DEPARTMENT OF PATHOLOGY, [address] [place] [address] [facility] Permit #[id number] Raza Serrano M.D. Director Gentry Alarcon M.D. [employer] Procedures Date CPT Code Description Status 10/18/2017 Mammogram Completed 12/18/2016 23428 ECHO Stress Test Incl Perf Contiuous ekg Monitoring Completed W/Phys Superv 10/16/2016 Mammogram Completed 10/16/2016 Bone Mineral Density Test Completed 09/27/2016 27933 EKG Tracing & Interpretation Completed 09/21/2015 Mammogram Completed 05/23/2015 Colonoscopy Completed 08/17/2014 46697 ECHO Transthorasic Realtime 2D W Doppler & Color Flow Completed Hosp 08/11/2014 Bone Mineral Density Test Completed 08/11/2014 Mammogram Completed 05/05/2012 Colonoscopy Completed 03/31/2012 Mammogram Completed 02/14/2010 Mammogram Completed 02/13/2010 Colonoscopy Completed 01/31/2010 63978 EKG Tracing & Interpretation Completed 07/06/2009 55014 Endometrial Sampling W Or W/O Endocervical BX W Or W/O Completed Cerv Dilat 12/23/2008 Bone Mineral Density Test Completed 12/16/2007 Mammogram Completed 12/12/2007 05080 EKG Tracing & Interpretation Completed Encounters Type Date Location Provider CPT E/M Dx Office Visit 08/19/2018 [facility] Internal Medicine Sierra Jimenez 75599 M25.562 9:50a Fam Salmeron M.D. Office Visit 10/15/2017 [facility] Internal Medicine Sierra Jimenez 62153 Z00.00 9:50a Fam Salmeron M.D. Z12.31 L21.9 L91.8 R73.9 Office Visit 10/01/2017 8:15a [facility] Steven Garcia 61508 M18.11 Of Christopher Finch MD Office Visit 08/27/2017 8:00a [facility] Steven Garcia 11687 S63.641A Of Christopher Finch MD M18.11 Office Visit 01/08/2017 10:00a [facility] Internal Medicine Darrius Mckinnon, 91663 J06.9 - Jaron Medel H66.91 Office Visit 09/27/2016 9:10a [facility] Internal Medicine Sierra Jimenez, 23351 Z00.00 - Jaron Medel Z12.39 M81.0 R06.02 Z12.4 Office Visit 12/07/2015 11:10a [facility] Internal Medicine Sierra Jimenez 84352 M79.641 - Chong Medel S53.401A Office Visit 08/03/2015 1:10p [facility] Medicine Sierra Jimenez M.D. 65861 V70.0 - Chong V76.10 V73.89 V77.1 V41.2 Office Visit 04/12/2015 2:30p [facility] Internal Medicine Sierra Jimenez 89298 733.01 - Chong Medel Office Visit 02/16/2015 1:50p [facility] Internal Medicine Sierra Jimenez 15756 733.01 - Chong Medel 702.0 536.8 704.00 Office Visit 11/02/2014 9:50a [facility] Internal Medicine Sierra Jimenez 91128 465.9 - Chong Medel Office Visit 08/24/2014 8:50a [facility] Internal Medicine Sierra Jimenez 10773 733.01 - Chong Medel V04.81 611.72 785.2 Office Visit 08/02/2014 1:10p [facility] Internal Medicine Sierra Jimenez 88923 V72.31 - Chong Medel V76.10 733.90 V76.2 695.3 611.72 785.2 Office Visit 07/15/2014 9:00a [facility] Internal [place] [address] 709.9 [place] Office Visit 04/28/2014 9:40a [facility] Internal Medicine - Melody Harrison M.D. 36826 709.9 [place] Office Visit 03/17/2013 10:00a [facility] Internal Medicine - Sheila Benavidez M.D., 70523 599.0 [place] FACP Office Visit 03/04/2013 1:20p [facility] Internal Medicine - Sheila Benavidez M.D., 43745 599.0 [place] FACP 493.90 Office Visit 09/01/2012 3:00p [facility] Melody Harrison M.D. 59988 599.0 - [place] Office Visit 08/26/2012 2:40p [facility] Sheila Benavidez M.D., 20273 493.90 - [place] FACP V04.81 Office Visit 06/11/2012 2:00p [facility] Internal Medicine - Sheila Benavidez M.D., 49201 V70.0 [place] FACP V72.31 V76.10 493.90 V04.89 272.0 Office Visit 03/18/2012 1:40p [facility] Melody Harrison M.D. 38730 789.03 - [place] Office Visit 02/29/2012 9:40a [facility] Melody Harrison M.D. 22976 789.03 - [place] Office Visit 02/27/2012 3:00p [facility] Melody Harrison M.D. 70637 789.03 - [place] Office Visit 08/31/2010 10:15a DO Not Use Johanna Lisen, N.P. 80385 380.4 Ad Copy Writer-[place] 380.10 Office Visit 07/07/2010 4:15p DO Not Use Johanna Brooks, 92997 595.9 Ad Copy Writer-[place] N.P. Office Visit 03/07/2010 1:15p DO Not Use Sheila Benavidez M.D., 62262 493.90 Ad Copy Writer-[place] FACP 627.3 Office Visit 01/31/2010 9:45a DO Not Use Ad Copy Writer-[place] Sheila Benavidez, 04676 V72.31 Gianfranco, FACP 786.09 Office Visit 01/17/2010 2:30p DO Not Use Ad Copy Writer-[place] Sheila Benavidez, 69273 599.0 M.D., FACP 789.09 Office Visit 08/22/2009 12:00p DO Not Use Ad Copy Writer-[place] Sheilasourav Benavidez, 96591 626.8 M.D., FACP Office Visit 06/20/2009 11:45a DO Not Use Ad Copy Writer-[place] Sheila Benavidez, 40161 626.8 M.D., FACP 788.63 Office Visit 04/04/2009 3:45p DO Not Use Johanna Brooks, 23209 720.2 Ad Copy Writer-[place] N.P. Office Visit 01/10/2009 4:00p DO Not Use Mary Yarbrough, 76540 733.90 Ad Copy Writer-[place] M.D. Office Visit 12/13/2008 1:15p DO Not Use Mary Yarbrough, 70520 V72.31 Ad Copy Writer-[place] M.D. V03.82 Office Visit 04/12/2008 11:00a DO Not Use Ad Copy Writer-[place] Sheila Benavidez, 95856 461.9 M.D., FACP Office Visit 12/12/2007 1:45p DO Not Use Ad Copy Writer-[place] Mary Yarbrough, 49997 V72.31 M.D. V06.1 Office Visit 10/01/2007 4:30p DO Not Use Mary Yarbrough, 23283 786.52 Ad Copy Writer-[place] M.D. Office Visit 08/22/2007 3:45p DO Not Use Johanna Brooks, 51352 599.0 Ad Copy Writer-[place] N.P. Office Visit 08/14/2007 9:30a DO Not Use Johanna Brooks, 09799 599.0 Ad Copy Writer-[place] N.P. Office Visit 06/25/2007 2:15p DO Not Use Sheila Benavidez M.D., 01525 692.79 Ad Copy Writer-[place] FACP Office Visit 10/03/2006 1:15p DO Not Use Mary Yarbrough, 59682 V72.31 Ad Copy Writer-[place] M.D. 493.00 Plan of Care Future Appointment(s):10/15/2018 11:10 am - Sierra Jimenez M.D. at [facility] Internal Medicine - [place]75/25/2018 - Sierra Jimenez M.D.[id number] Pain in left kneeReferral:Primitivo Leal MD, Surgery,OrthopedicFollow up:as scheduled
--- NOTE | 2018-08-30 14:41 | UC ---
Complaint Female HPI - HPI Summary HPI Summary: Patient presents to urgent care with 3 days of progressive pressure and discomfort and urethra as well as cloudy urine. Patient states she's had recurrent UTIs over the last 5 months. Patient states she feels like they have never completely cleared. Patient's been treated with nitrofurantoin every time. Patient denies fevers or chills. Patient denies nausea vomiting. Patient has abdominal pain. Patient's headache or vision changes. Patient denies any other complaints. Patient has previously been seen by Dr. Sanchez for recurrent UTIs started 5 years ago. Patient been you. I free for 4 years and so was released from his clinic this past March. Symptoms and started again and April. Patient states nothing has changed. No change in diet, change in partners, change in hygiene products, change in medications. Review of patient's culture shows she has ESBL Escherichia coli sensitive to Nitrofuratoin. Patient's medications reviewed this visit - History Of Current Complaint Stated Complaint: URINARY COIMPLAINT Time Seen by Provider: 08/30/18 14:33 Hx Obtained From: Patient, Medical Records ?: No Onset/Duration: Gradual Onset Timing: Constant Severity Initially: Mild - Allergies/Home Medications Allergies/Adverse Reactions: Allergies Allergy/AdvReac Type Severity Reaction Status Date / Time tiotropium Allergy See Comment Verified 08/02/18 18:43 [From Spiriva with Handi[facility]er] PMH/Surg Hx/FS Hx/Imm Hx Previously Healthy: Yes Other GI/ History: recurrent UTI - Surgical History Surgical History: Yes Surgery Procedure, Year, and Place: LT SHOULDER SURGURY 2003basal cell ca removalTONSILS A KID - Family History Known Family History: Positive: None, Other - SISTER HAD SHINGLES Family History: noncontributory - Social History Lives: With Family Alcohol Use: Occasionally Substance Use Type: None Smoking Status (MU): Never Smoked Tobacco Review of Systems Genitourinary: Dysuria, Urgency All Other Systems Reviewed And Are Negative: Yes Physical Exam - Summary Physical Exam Summary: Vital Signs Reviewed: Yes A+Ox3, no distress Eyes: Conjunctiva Clear ENT: Hearing grossly normal neck: supple Respiratory: Positive: No respiratory distress, No accessory muscle use Cardiovascular: skin color reflect adequate perfusion abd: soft + BS no guarding, no rebound No CVA Musculoskeletal Exam: GOSS x 4 without difficulty Neurological: Positive: Alert, ambulatory without difficulty Psychological: Positive: Normal Response To Family Skin: Positive: no rash, no ecchymosis Triage Information Reviewed: Yes Complaint Female Dx - Course Course Of Treatment: Pt presents with recurrent UTI sx. pt has had repeated UTI over past 5 months. Pt has been taking macrobid - cultures have been sensitive. Pt well appearing. urine 3+ LE. Will culture. Will start bactrim. recommend f/u with Dr. Sanchez. pt comforatble and in agreement with plan - Differential Dx/Diagnosis Provider Diagnoses: UTI Discharge - Sign-Out/Discharge Documenting (check all that apply): Patient Departure All imaging exams completed and their final reports reviewed: No Studies - Discharge Plan Condition: Stable Disposition: HOME Prescriptions: Sulfamethox/Trimethoprim DS* [Bactrim DS 800/160 TAB*] 1 tab PO BID #28 tab Patient Education Materials: Urinary Tract Infection in Women (ED) Referrals: Sierra Jimenez MD [Primary Care Provider] - Mayito Sanchez MD [Medical Doctor] - Additional Instructions: - stay well hydrated - drink plenty of non-alcoholic, non caffinated beverages - your urine will be further tested - if you require any changes to your treatment, we will contact you - this usually take 2 days - Take your antibiotics exactly as prescribed until gone - Okay to alternate ibuprofen (Advil, Motrin) and Tylenol every 3 hours for pain. Take with food -Contact Dr Chavez to schedule a follow-up appointment If you develop fevers, back pain, vomiting or any other concerns it is recommended you go to the emergency department for further treatment and eval - Billing Disposition and Condition Condition: STABLE Disposition: Home
[2018-08-30 14:42] VITALS: BP 108/60
--- NOTE | 2018-09-02 13:05 | UC ---
- Progress Note Progress Note: ESBL E. COLI SENSITIVE TO BACTRIM ON URINE CULTURE. F/U UROLOGY ADVISED. CONSIDER APPT WITH INFECTIOUS DISEASES BASED ON UROLOGY RECOMMENDATIONS. DR. GABRIEL MARSH - ARSEN ANAYA MD Discharge - Sign-Out/Discharge Documenting (check all that apply): Post-Discharge Follow Up All imaging exams completed and their final reports reviewed: No Studies - Discharge Plan Condition: Stable Disposition: HOME Prescriptions: Sulfamethox/Trimethoprim DS* [Bactrim DS 800/160 TAB*] 1 tab PO BID #28 tab Patient Education Materials: Urinary Tract Infection in Women (ED) Referrals: Sierra Jimenez MD [Primary Care Provider] - Mayito Sanchez MD [Medical Doctor] - Additional Instructions: - stay well hydrated - drink plenty of non-alcoholic, non caffinated beverages - your urine will be further tested - if you require any changes to your treatment, we will contact you - this usually take 2 days - Take your antibiotics exactly as prescribed until gone - Okay to alternate ibuprofen (Advil, Motrin) and Tylenol every 3 hours for pain. Take with food -Contact Dr Chavez to schedule a follow-up appointment If you develop fevers, back pain, vomiting or any other concerns it is recommended you go to the emergency department for further treatment and eval - Billing Disposition and Condition Condition: STABLE Disposition: Home
== END 2018-08-30 15:30 | disposition home or self-care (01) ==
LOC: UCEAST 14:03
DX: N39.0 Urinary tract infection, site not specified (principal); Z88.2 Allergy status to sulfonamides
CPT/HCPCS: 81003; 87077; 87086; 87186; 87798; 99212; G0463